=== PATIENT | female | born 1930 | race African-American/Black ===

== ENCOUNTER 2018-10-30 05:55 | Inpatient (IN) | payer MEDICARE ==
[2018-10-30] MEDS ORDERED: ASPIRIN 81 MG TABLET, CHEWABLE PO ONE (06:15)
[2018-10-30 06:29] LABS: ABSOLUTE LYMPHOCYTES (AUTO) 1.6 10^3/uL (0.5-4.7); ABSOLUTE MONOCYTES (AUTO) 0.9 10^3/uL (0.1-1.4); ABSOLUTE NEUT (AUTO) 5.1 10^3/uL (1.7-8.2); BASOPHILS % (AUTO) 0.4 % (0-2); EOSINOPHILS % (AUTO) 0.2 % (0-6); HEMATOCRIT 36.9 % (36.0-47.0); HEMOGLOBIN 12.2 g/dL (12.0-15.5); LYMPHOCYTES % (AUTO) 20.8 % (13-45); MEAN CORPUSCULAR VOLUME 94 fl (80-97); MONOCYTES % (AUTO) 11.4 % (3-13); PLATELET COUNT 222 10^3/uL (150-450); RED BLOOD COUNT 3.92 10^6/uL (3.72-5.28); RED CELL DISTRIBUTION WIDTH 15.9 % (11.5-14.0); SEGMENTED NEUTROPHILS % (AUTO) 67.2 % (42-78); TOTAL CELLS COUNTED % (AUTO) 100 %; WHITE BLOOD COUNT 7.6 10^3/uL (4.0-10.5)
[2018-10-30] MEDS ORDERED: NORMAL SALINE 500 ML IV ONE (06:37)
[2018-10-30 06:58] LABS: ALANINE AMINOTRANSFERASE 45 U/L (9-52); ALBUMIN 4.4 g/dL (3.5-5.0); ALKALINE PHOSPHATASE 91 U/L (38-126); ANION GAP 13 (5-19); ASPARTATE AMINO TRANSFERASE 69 U/L (14-36); BILIRUBIN,DIRECT 0.3 mg/dL (0.0-0.4); BILIRUBIN,TOTAL 0.9 mg/dL (0.2-1.3); BLOOD UREA NITROGEN 25 mg/dL (7-20); CALCIUM 9.7 mg/dL (8.4-10.2); CARBON DIOXIDE 21 mmol/L (22-30); CHLORIDE 113 mmol/L (98-107); CREATINE KINASE 255 U/L (30-135); GLUCOSE 173 mg/dL (75-110); LIPASE 28.2 U/L (23-300); POTASSIUM 3.8 mmol/L (3.6-5.0); SODIUM 146.6 mmol/L (137-145); TOTAL PROTEIN 8.1 g/dL (6.3-8.2)
[2018-10-30 07:09] LABS: CREATINE KINASE MB 6.75 ng/mL (<4.55)
[2018-10-30 07:15] LABS: TROPONIN I 0.437 ng/mL
--- NOTE | 2018-10-30 07:21 | RADIOLOGY REPORT (SQ) ---
EXAM DESCRIPTION: X-ray single view chest. CLINICAL HISTORY: 87 years Female, sob COMPARISON: None. TECHNIQUE: Single portable view of the chest performed on 10/30/2018 at 6:47 AM FINDINGS: The lungs are well expanded. There is patchy bibasilar opacification which may be due to atelectasis and small effusions. There is no evidence of a pneumothorax. There is a left upper lobe granuloma. The cardiac silhouette appears enlarged and may be accentuated by the portable technique. There is mild tortuosity of the thoracic aorta. No acute osseous abnormality is identified. No focal soft tissue abnormalities are seen. Lines and tubes: There are multiple overlying monitoring analyst leads. IMPRESSION: 1. Patchy bibasilar opacification which may be due to a combination of pleural fluid and atelectasis. Underlying pneumonic infiltrates are not excluded. 2. Suspect cardiomegaly.
[2018-10-30] MEDS ORDERED: NORMAL SALINE 1000 ML 1,000 ML IV ONE (07:54)
[2018-10-30] MEDS ORDERED: CEFTRIAXONE 1 GM/D5W RTU 1 GM/50 ML RTUPB IV ONE (08:30)
--- NOTE | 2018-10-30 08:56 | RADIOLOGY REPORT (SQ) ---
EXAM DESCRIPTION: CTA CHEST COMPLETED DATE/TIME: 10/30/2018 8:42 am REASON FOR STUDY: sob elevated trop pna COMPARISON: None. TECHNIQUE: CT scan of the chest performed using helical scanning technique with dynamic intravenous contrast injection. Images reviewed with lung, soft tissue and bone windows. Reconstructed coronal and sagittal MPR images reviewed. Additional 3 dimensional post-processing performed to develop Maximal Intensity Projection images ([place] P). All images stored on PACS. All CT scanners at this facility use dose modulation, iterative reconstruction, and/or weight based d osing when appropriate to reduce radiation dose to as low as reasonably achievable (ALARA). [facility]: Dose Right [facility]: CareDose [facility]: Dose Right [facility]: Teradose 4D [facility]: ORDISSIMO CONTRAST TYPE AND DOSE: contrast/concentration: Isovue 350.00 mg/ml; Total Contrast Delivered: 65.0 ml; Total Saline Delivered: 80.0 ml Contrast bolus optimized for the pulmonary arteries. Not diagnostic for the aorta. RENAL FUNCTION: GFR > 60. RADIATION DOSE: CT Rad equipment meets quality standard of care and radiation dose reduction techniq ues were employed. CTDIvol: 14.3 - 52.9 mGy. DLP: 521 mGy-cm. . LIMITATIONS: None. FINDINGS: LUNGS AND PLEURA: Moderate right, small left pleural effusions with associated atelectasis or consolidation. AORTA AND GREAT VESSELS: Aneurysm of the ascending thoracic aorta, maximum caliber 4.7 x 4.6 cm in th e axial plane. Limited evaluation on this non tailored pulmonary angiogram. HEART: Marked cardiomegaly. PULMONARY ARTERIES: No emboli visualized in the main pulmonary arteries or the segmental branches. HILAR AND MEDIASTINAL STRUCTURES: No identified masses or abnormal nodes. HARDWARE: None in the chest. UPPER ABDOMEN: No significant findings. Limited exam. THYROID AND OTHER SOFT TISSUES: No masses. No adenopathy. BONES: No acute or significant finding. 3D MIPS: Confirm above findings. OTHER: No other significant finding. IMPRESSION: 1. Negative examination for pulmonary embolism. 2. Moderate right, small left pleural effusions with associated atelectasis or consolidation. 3. Cardiomegaly. 4. Aneurysm of the ascending thoracic aorta, maximum caliber 4.7 x 4.6 cm in the axial plane. COMMENT: Quality ID # [id number]: Final reports with documentation of one or more dose reduction techniques (e.g., Automated exposure control, adjustment of the mA and/or kV according to patient size, use of iterative reconstruction technique) TECHNICAL DOCUMENTATION: JOB ID: [id number] [employer]- All Rights Reserved Reading location - IP/workstation name: [email or web address]
--- NOTE | 2018-10-30 09:44 | ER Document Report ---
ED General - General Chief Complaint: Dizziness Stated Complaint: DIZZINESS Time Seen by Provider: 10/30/18 06:14 TRAVEL OUTSIDE OF THE [place] IN LAST 30 DAYS: No - HPI Patient complains to provider of: Dizziness shortness of breath Notes: Patient coming in for evaluation of dizziness patient states dizzy since however has increased and got worse along with shortness of breath. Patient states that she is never seen a doctor is not on any medications otherwise never gets sick denies any fevers chills nausea vomiting diarrhea. Family member states patient has had a slight cough since . Patient does not take any medications nor is she allergic to any medications upon initial triage patient has a bouncing heart rate from the 90s-140s patient was placed in the procedure room up to the monitor showing sinus tachycardia however rate seem to be consistent. Patient denies any pain denies any chest pain abdominal pain patient did not cough any sputum production. Patient is unaware of any changes in her dizziness with movement standing or turning of her head. Patient otherwise is very delightful joking in the room with family members in no obvious distress upon my evaluation. - Related Data Allergies/Adverse Reactions: No Known Allergies Allergy (Verified 09/23/14 09:35) Past Medical History - Social History Smoking Status: Unknown if Ever Smoked Family History: Reviewed & Not Pertinent Patient has suicidal ideation: No Patient has homicidal ideation: No Renal/ Medical History: Denies: Hx Peritoneal Dialysis Past Surgical History: Reports: Hx Section, Hx Hysterectomy Review of Systems - Review of Systems Constitutional: Other - Dizziness EENT: No symptoms reported Cardiovascular: No symptoms reported Respiratory: No symptoms reported Gastrointestinal: No symptoms reported Genitourinary: No symptoms reported Female Genitourinary: No symptoms reported Musculoskeletal: No symptoms reported Skin: No symptoms reported Hematologic/Lymphatic: No symptoms reported Neurological/Psychological: No symptoms reported -: Yes All other systems reviewed and negative Physical Exam - Vital signs Vitals: Temp Pulse Resp BP Pulse Ox 97.6 F 142 H 20 142/92 H 96 10/30/18 06:08 10/30/18 06:08 10/30/18 06:08 10/30/18 06:08 10/30/18 06:08 Interpretation: Normal - General General appearance: Appears well, Alert - HEENT Head: Normocephalic, Atraumatic Eyes: Normal Pupils: PERRL - Respiratory Respiratory status: No respiratory distress Chest status: Nontender Breath sounds: Normal Chest palpation: Normal - Cardiovascular Rhythm: Regular, Tachycardia Heart sounds: Normal auscultation Murmur: No - Abdominal Inspection: Normal Distension: No distension Bowel sounds: Normal Tenderness: Nontender Organomegaly: No organomegaly - Back Back: Normal, Nontender - Extremities General upper extremity: Normal inspection, Nontender, Normal color, Normal ROM, Normal temperature General lower extremity: Normal inspection, Nontender, Normal color, Normal ROM, Normal temperature - Neurological Neuro grossly intact: Yes Cognition: Normal Orientation: AAOx4 Maxwell Coma Scale Eye Opening: Spontaneous Carlo Coma Scale Verbal: Oriented Carlo Coma Scale Motor: Obeys Commands Maxwell Coma Scale Total: 15 Speech: Normal Motor strength normal: LUE, RUE, LLE, RLE Sensory: Normal - Psychological Associated symptoms: Normal affect, Normal mood - Skin Skin Temperature: Warm Skin Moisture: Dry Skin Color: Normal Course - Re-evaluation Re-evalutation: 10/30/18 14:24 Patient's initial evaluation does not show any critical pathology. Patient's EKG shows sinus tachycardia no signs of ST segment elevation. Initial troponin did return positive at 0.4. Patient underwent a CTA showing slight aneurysmal dilation of the ascending aorta 4.7 no signs of dissection pleural effusions along with signs of possible pneumonia. Patient was having a productive cough upon reevaluation was not start treatment with antibiotics. Discussed the patient's case with Dr. Pickard cardiology certified indoor environmentalist states at this time no need to transfer the patient with elevation troponin more likely due to fluid overload or pneumonia. Discussed with the hospitalist Dr. Cook who will admit the patient for further evaluation. - Vital Signs Vital signs: Temp Pulse Resp BP Pulse Ox 97.9 F 98 35 H 138/82 H 100 10/30/18 13:10 10/30/18 06:26 10/30/18 13:02 10/30/18 13:02 10/30/18 13:02 - Laboratory Result Diagrams: 10/30/18 06:25 10/30/18 06:25 Laboratory results interpreted by me: 10/30/18 10/30/18 10/30/18 06:25 06:25 06:25 RDW 15.9 H Sodium 146.6 H Chloride 113 H Carbon Dioxide 21 L BUN 25 H Est GFR (Non-Af Amer) 58 L Glucose 173 H AST 69 H Creatine Kinase 255 H CK-MB (CK-2) 6.75 H NT-Pro-B Natriuret Pep 10/30/18 10/30/18 10/30/18 06:25 10:15 10:15 RDW Sodium Chloride Carbon Dioxide BUN Est GFR (Non-Af Amer) Glucose AST Creatine Kinase 231 H CK-MB (CK-2) 5.69 H NT-Pro-B Natriuret Pep 20081 H Critical Care Note - Critical Care Note Total time excluding time spent on procedures (mins): 35 Comments: Multiple evaluations patient with initial tachycardia and stable vital signs laboratory studies showing elevation in troponin requiring multiple consultations with hospitalist and louver door assembler. Discharge - Discharge Clinical Impression: Elevated troponin, Dizziness Pneumonia Qualifiers: Pneumonia type: due to unspecified organism Laterality: bilateral Lung location: unspecified part of lung Qualified Code(s): J18.9 - Pneumonia, unspecified organism CHF (congestive heart failure) Qualifiers: Heart failure type: unspecified Heart failure chronicity: unspecified Qualified Code(s): I50.9 - Heart failure, unspecified Disposition: ADMITTED INPATIENT Admitting Provider: Hospitalist - [facility] Unit Admitted: [facility]
[2018-10-30] MEDS ORDERED: ONDANSETRON HCL INJ/PF 4 MG/2 ML SDV IV PRN (10:01)
[2018-10-30] MEDS ORDERED: NORMAL SALINE 1000 ML 1,000 ML IV PRN (10:01)
[2018-10-30] MEDS ORDERED: ACETAMINOPHEN 325 MG TABLET PO PRN (10:01)
--- NOTE | 2018-10-30 10:26 | PDOC H&P ---
History of Present Illness Admission Date/PCP: 10/30/2018 Patient complains of: Increasing weakness shortness of breath and sweating for last 5 days History of Present Illness: JOSSY LOW is a 88 year old female with no significant past medical history came to the emergency room with complaints of increasing weakness heart flashes shortness of breath and sweating in association with nausea vomiting's vomiting clear mucus and loose stools for the last 5 days decided to came to the emerg ency room for further evaluation. She is also given the complaints of dizziness on standing up. Any chest pains but complains of wheezing. His any headaches. Has any problems with urination. In the emergency room she has a CT of the chest was done found to have moderate right and small left pleural effusions with adjacent atelectasis/consolidation. Pulmonary embolism was ruled out. Troponin was 0.[address] Pickard mold tooling technician communications attendant was consulted. I went to talk to the patient and the family able to get good information. I was able to reconfirm the information the ER physician got from the patient and the family. Past Surgical History Past Surgical History: Reports: Section, Hysterectomy Social History Smoking Status: Unknown if Ever Smoked - Advance Directive Resuscitation Status: Full Code Family History Family History: Reviewed & Not Pertinent Parental Family History Reviewed: Yes Children Family History Reviewed: Yes Sibling(s) Family History Reviewed.: Yes Medication/Allergy Home Medications: Tramadol HCl [Ultram 50 mg Tablet] 50 mg PO ASDIR PRN #20 tablet 09/23/14 Walker [Folding Walker] 1 each MC ASDIR PRN #1 each 09/23/14 Allergies/Adverse Reactions: No Known Allergies Allergy (Verified 09/23/14 09:35) Review of Systems Constitutional: PRESENT: fatigue, weakness. ABSENT: fever(s), headache(s) Eyes: ABSENT: visual disturbances Ears: ABSENT: hearing changes Cardiovascular: ABSENT: chest pain, dyspnea on exertion, palpitations Respiratory: PRESENT: cough, dyspnea, other - clear sputum Neurological: ABSENT: abnormal gait, abnormal speech, confusion, dizziness, focal weakness, syncope Psychiatric: ABSENT: anxiety, depression, homidical ideation, suicidal ideation Physical Exam Vital Signs: Temp Pulse Resp BP Pulse Ox 97.7 F 98 26 H 131/96 H 80 L 10/30/18 07:27 10/30/18 06:26 10/30/18 07:02 10/30/18 07:02 10/30/18 07:02 Intake & Output 10/29/18 10/30/18 10/31/18 06:59 06:59 06:59 Intake Total 500 Balance 500 Weight 57.4 kg General appearance: PRESENT: no acute distress Head exam: PRESENT: atraumatic Eye exam: PRESENT: PERRLA Mouth exam: PRESENT: moist Neck exam: ABSENT: carotid bruit, JVD, lymphadenopathy, thyromegaly Respiratory exam: PRESENT: decreased breath sounds, wheezes Cardiovascular exam: PRESENT: tachycardia GI/Abdominal exam: PRESENT: normal bowel sounds, soft. ABSENT: distended, guarding, mass, organolmegaly, rebound, tenderness Neurological exam: PRESENT: alert, awake, oriented to person, oriented to place, oriented to time, oriented to situation, CN II-XII grossly intact. ABSENT: motor sensory deficit Psychiatric exam: PRESENT: appropriate affect, normal mood. ABSENT: homicidal ideation, suicidal ideation Results Laboratory Results: 10/30/18 06:25 10/30/18 06:25 10/30/18 10/30/18 06:25 06:25 WBC 7.6 RBC 3.92 Hgb 12.2 Hct 36.9 MCV 94 MCH 31.0 MCHC 33.0 RDW 15.9 H Plt Count 222 Seg Neutrophils % 67.2 Lymphocytes % 20.8 Monocytes % 11.4 Eosinophils % 0.2 Basophils % 0.4 Absolute Neutrophils 5.1 Absolute Lymphocytes 1.6 Absolute Monocytes 0.9 Absolute Eosinophils 0.0 Absolute Basophils 0.0 Sodium 146.6 H Potassium 3.8 Chloride 113 H Carbon Dioxide 21 L Anion Gap 13 BUN 25 H Creatinine 0.92 Est GFR ( Amer) > 60 Est GFR (Non-Af Amer) 58 L Glucose 173 H Calcium 9.7 Magnesium 1.9 Total Bilirubin 0.9 AST 69 H ALT 45 Alkaline Phosphatase 91 Total Protein 8.1 Albumin 4.4 Lipase 28.2 10/30/18 10/30/18 10/30/18 06:25 06:25 06:25 Creatine Kinase 255 H CK-MB (CK-2) 6.75 H Troponin I 0.437 NT-Pro-B Natriuret Pep 15346 H Impressions: Chest X-Ray 10/30/18 06:15 IMPRESSION: 1. Patchy bibasilar opacification which may be due to a combination of pleural fluid and atelectasis. Underlying pneumonic infiltrates are not excluded. 2. Suspect cardiomegaly. Chest/Abdomen CTA 10/30/18 07:54 IMPRESSION: 1. Negative examination for pulmonary embolism. 2. Moderate right, small left pleural effusions with associated atelectasis or consolidation. 3. Cardiomegaly. 4. Aneurysm of the ascending thoracic aorta, maximum caliber 4.7 x 4.6 cm in the axial plane. Assessment & Plan - Diagnosis (1) Pneumonia Qualifiers: Laterality: bilateral Is this a current diagnosis for this admission?: Yes Plan: 10/30/2018-plan today is 2. The patient IMCU. As an inpatient. Sputum cultures ,blood cultures are requested. Patient was placed on oxygen 2 L nasal cannula. Going to put the patient on IV Rocephin 1 g daily Zithromax 500 mg IV daily. To continue CBC and chemistry on daily basis. I am going to request for lactic acid level. I placed her on gentle IV fluids normal saline at 50 cc/h. (2) CHF (congestive heart failure) Is this a current diagnosis for this admission?: Yes Plan: 10/30/2018-CT chest shows bilateral pleural effusions. I am going to request for BNP echocardiogram and cardiology consult was placed. Patient is not in fluid overload. No previous history of congestive heart failure. BNP came back as 34,300. (3) Elevated troponin Is this a current diagnosis for this admission?: Yes Plan: 10/30/2018 initial troponin is 0.4 mold tooling technician was consulted. Start for cardiac enzymes x3, echocardiogram, patient was started on aspirin 325 mg p.o. daily, simvastatin 20 mg p.o. nightly, lipid profile was requested. - Time Time Spent: 50 to 70 Minutes Critical Time spent with patient: 15-24 minutes Medications reviewed and adjusted accordingly: Yes Anticipated discharge: Home
[2018-10-30] MEDS ORDERED: METOPROLOL TARTRATE PF/INJ 5 MG/5 ML SDV IV ONE (10:49)
[2018-10-30] MEDS: FAMOTIDINE INJ/PF 20 MG/2 ML SDV IV SCH ×2 (12:49→21:20)
[2018-10-30] MEDS: AZITHROMYCIN 500 MG in DEXTROSE 5%-WATER 250 ML IV SCH (12:58)
[2018-10-30] MEDS ORDERED: MORPHINE SULFATE 10 MG/ML INJ IV PRN (13:46)
[2018-10-30] MEDS ORDERED: LORAZEPAM INJ 2 MG/1 ML VIAL IV PRN (13:46)
[2018-10-30] MEDS ORDERED: ALBUTEROL SULFATE 0.042% NEB (1.25 MG/3 ML) AMPUL NEB PRN (13:49)
--- NOTE | 2018-10-30 15:05 | EKG REPORT ---
SEVERITY:- ABNORMAL ECG - SINUS TACHYCARDIA VENTRICULAR TRIGEMINY LEFT AXIS DEVIATION LVH WITH SECONDARY REPOLARIZATION ABNORMALITY ANTERIOR INFARCT, AGE INDETERMINATE PROLONGED QT INTERVAL : Confirmed by: Brandon Melendez 30-Oct-2018 15:04:15
--- NOTE | 2018-10-30 15:05 | EKG REPORT ---
SEVERITY:- ABNORMAL ECG - SINUS TACHYCARDIA PAIRED VENTRICULAR PREMATURE COMPLEXES PROBABLE LEFT ATRIAL ABNORMALITY LEFT AXIS DEVIATION LVH WITH SECONDARY REPOLARIZATION ABNORMALITY ANTERIOR INFARCT, AGE INDETERMINATE BORDERLINE PROLONGED QT INTERVAL : Confirmed by: Brandon Melendez 30-Oct-2018 15:04:30
[2018-10-30] MEDS: ENOXAPARIN SODIUM INJ 30 MG/0.3 ML DISP.SYRIN SUBCUT SCH (16:15)
[2018-10-30] MEDS ORDERED: FUROSEMIDE INJ/PF 40 MG/4 ML SDV IV ONE (16:30)
[2018-10-30 16:32] LABS: CREATINE KINASE MB 5.35 ng/mL (<4.55); TROPONIN I 0.578 ng/mL
[2018-10-30 18:46] LABS: APPEARANCE,URINE CLEAR; BILIRUBIN,URINE NEGATIVE (NEGATIVE); COLOR,URINE YELLOW; GLUCOSE, URINE NEGATIVE (NEGATIVE); KETONES,URINE NEGATIVE (NEGATIVE); LEUKOCYTE ESTERASE,URINE NEGATIVE (NEGATIVE); NITRITE,URINE NEGATIVE (NEGATIVE); PROTEIN,URINE NEGATIVE (NEGATIVE); URINE SPECIFIC GRAVITY 1.025; UROBILINOGEN,URINE NEGATIVE mg/dL (<2.0)
[2018-10-30] MEDS: SIMVASTATIN 40 MG TABLET PO SCH ×2 (21:24→23:20)
[2018-10-30 23:16] LABS: CREATINE KINASE MB 3.6 ng/mL (<4.55); TROPONIN I 0.575 ng/mL
[2018-10-31] MEDS ORDERED: METOPROLOL TARTRATE PF/INJ 5 MG/5 ML SDV IV ONE (06:15)
[2018-10-31] MEDS ORDERED: METOPROLOL SUCCINATE 50 MG TAB.SR.24H PO ONE (06:15)
[2018-10-31 06:29] LABS: ABSOLUTE LYMPHOCYTES (AUTO) 1.6 10^3/uL (0.5-4.7); ABSOLUTE MONOCYTES (AUTO) 1.2 10^3/uL (0.1-1.4); ABSOLUTE NEUT (AUTO) 3.5 10^3/uL (1.7-8.2); BASOPHILS % (AUTO) 0.5 % (0-2); EOSINOPHILS % (AUTO) 0.1 % (0-6); HEMATOCRIT 30.9 % (36.0-47.0); HEMOGLOBIN 10.4 g/dL (12.0-15.5); MEAN CORPUSCULAR HEMOGLOBIN 31.4 pg (27.0-33.4); MEAN CORPUSCULAR HGB CONC 33.8 g/dL (32.0-36.0); MEAN CORPUSCULAR VOLUME 93 fl (80-97); MONOCYTES % (AUTO) 18.2 % (3-13); PLATELET COUNT 161 10^3/uL (150-450); RED BLOOD COUNT 3.32 10^6/uL (3.72-5.28); RED CELL DISTRIBUTION WIDTH 15.7 % (11.5-14.0); SEGMENTED NEUTROPHILS % (AUTO) 55.2 % (42-78); TOTAL CELLS COUNTED % (AUTO) 100 %; WHITE BLOOD COUNT 6.3 10^3/uL (4.0-10.5)
[2018-10-31 06:59] LABS: ALANINE AMINOTRANSFERASE 62 U/L (9-52); ALBUMIN 3.2 g/dL (3.5-5.0); ALKALINE PHOSPHATASE 75 U/L (38-126); ANION GAP 8 (5-19); ASPARTATE AMINO TRANSFERASE 86 U/L (14-36); BILIRUBIN,DIRECT 0.2 mg/dL (0.0-0.4); BILIRUBIN,TOTAL 0.5 mg/dL (0.2-1.3); BLOOD UREA NITROGEN 27 mg/dL (7-20); CALCIUM 8.9 mg/dL (8.4-10.2); CARBON DIOXIDE 21 mmol/L (22-30); CHLORIDE 112 mmol/L (98-107); CHOLESTEROL 115.12 mg/dL (0-200); GLUCOSE 114 mg/dL (75-110); SODIUM 141.3 mmol/L (137-145); TOTAL PROTEIN 6.2 g/dL (6.3-8.2); TRIGLYCERIDES 61 mg/dL (<150)
[2018-10-31 07:11] LABS: DIRECT LDL 63 mg/dL (<100)
[2018-10-31] MEDS ORDERED: AZITHROMYCIN INJ 500 MG VIAL IV SCH (10:00)
[2018-10-31] MEDS ORDERED: CYANOCOBALAMIN (VITAMIN B-12) INJ 1000 MCG/1 ML VIAL IM ONE ×2 (10:00→18:30)
[2018-10-31] MEDS ORDERED: CEFTRIAXONE INJ 500 MG VIAL IV SCH (10:00)
[2018-10-31] MEDS ORDERED: ENOXAPARIN SODIUM INJ 40 MG/0.4 ML DISP.SYRIN SUBCUT SCH ×2 (10:00)
--- NOTE | 2018-10-31 10:07 | PDOC PROGRESS REPORT ---
Subjective Progress Note for:: 10/31/18 Subjective:: 10/31/20180122-88-bquw-old female admitted for a slightly elevated troponins and pneumonia. Yesterday evening she has an episode of tachypnea tachycardia complaining of difficulty in breathing become anxious and agitated we did a repeat troponin levels actually the shows downward trend and she was given Ativan 1 mg IV then when she came up to the floor she calmed down and no acute issues after that. Patient is alert and oriented this morning smiling. Was told me that his EKG strip shows bigeminy. plan is to closely monitor cardiac rhythum. Reason For Visit: PNEUMONIA Physical Exam Vital Signs: Temp Pulse Resp BP Pulse Ox 97.9 F 83 22 H 123/57 L 99 10/31/18 03:06 10/31/18 06:40 10/31/18 06:40 10/31/18 06:40 10/31/18 03:06 Intake & Output 10/30/18 10/31/18 11/01/18 06:59 06:59 06:59 Intake Total 1200 Output Total 850 Balance 350 Weight 57.4 kg 62.1 kg General appearance: PRESENT: no acute distress Head exam: PRESENT: atraumatic Eye exam: PRESENT: PERRLA Mouth exam: PRESENT: moist Neck exam: PRESENT: JVD Respiratory exam: PRESENT: crackles, decreased breath sounds Cardiovascular exam: PRESENT: tachycardia GI/Abdominal exam: PRESENT: normal bowel sounds, soft. ABSENT: distended, guarding, mass, organolmegaly, rebound, tenderness Neurological exam: PRESENT: alert, awake, oriented to person, oriented to place, oriented to time, oriented to situation, CN II-XII grossly intact. ABSENT: motor sensory deficit Psychiatric exam: PRESENT: appropriate affect, normal mood. ABSENT: homicidal ideation, suicidal ideation Results Laboratory Results: 10/31/18 05:22 10/31/18 05:22 10/30/18 10/30/18 10/31/18 11:00 18:15 05:22 WBC 6.3 RBC 3.32 L Hgb 10.4 L Hct 30.9 L MCV 93 MCH 31.4 MCHC 33.8 RDW 15.7 H Plt Count 161 Seg Neutrophils % 55.2 Lymphocytes % 26.0 Monocytes % 18.2 H Eosinophils % 0.1 Basophils % 0.5 Absolute Neutrophils 3.5 Absolute Lymphocytes 1.6 Absolute Monocytes 1.2 Absolute Eosinophils 0.0 Absolute Basophils 0.0 Sodium Potassium Chloride Carbon Dioxide Anion Gap BUN Creatinine Est GFR ( Amer) Est GFR (Non-Af Amer) Glucose Lactic Acid 2.6 H Calcium Magnesium Total Bilirubin AST ALT Alkaline Phosphatase Total Protein Albumin Triglycerides Cholesterol LDL Cholesterol Direct VLDL Cholesterol HDL Cholesterol TSH Urine Color YELLOW Urine Appearance CLEAR Urine pH 5.0 Ur Specific [place] 1.025 Urine Protein NEGATIVE Urine Glucose (UA) NEGATIVE Urine Ketones NEGATIVE Urine Blood SMALL H Urine Nitrite NEGATIVE Ur Leukocyte Esterase NEGATIVE Urine WBC (Auto) 1 Urine RBC (Auto) 3 10/31/18 10/31/18 05:22 05:22 WBC RBC Hgb Hct MCV MCH MCHC RDW Plt Count Seg Neutrophils % Lymphocytes % Monocytes % Eosinophils % Basophils % Absolute Neutrophils Absolute Lymphocytes Absolute Monocytes Absolute Eosinophils Absolute Basophils Sodium 141.3 Potassium 4.0 Chloride 112 H Carbon Dioxide 21 L Anion Gap 8 BUN 27 H Creatinine 1.04 Est GFR ( Amer) > 60 Est GFR (Non-Af Amer) 50 L Glucose 114 H Lactic Acid Calcium 8.9 Magnesium 1.9 Total Bilirubin 0.5 AST 86 H ALT 62 H Alkaline Phosphatase 75 Total Protein 6.2 L Albumin 3.2 L Triglycerides 61 Cholesterol 115.12 LDL Cholesterol Direct 63 VLDL Cholesterol 12.0 HDL Cholesterol 43 TSH 0.75 Urine Color Urine Appearance Urine pH Ur Specific [place] Urine Protein Urine Glucose (UA) Urine Ketones Urine Blood Urine Nitrite Ur Leukocyte Esterase Urine WBC (Auto) Urine RBC (Auto) 10/30/18 10/30/18 10/30/18 06:25 06:25 06:25 Creatine Kinase 255 H CK-MB (CK-2) 6.75 H Troponin I 0.437 NT-Pro-B Natriuret Pep 43927 H 10/30/18 10/30/18 10/30/18 10:15 10:15 10:15 Creatine Kinase 231 H CK-MB (CK-2) 5.69 H Troponin I 0.563 NT-Pro-B Natriuret Pep 10/30/18 10/30/18 10/30/18 14:25 15:53 15:53 Creatine Kinase 260 H CK-MB (CK-2) 5.35 H Troponin I 0.640 0.578 NT-Pro-B Natriuret Pep 10/30/18 10/30/18 10/31/18 22:23 22:23 05:22 Creatine Kinase 219 H CK-MB (CK-2) 3.60 Troponin I 0.575 NT-Pro-B Natriuret Pep 76668 H Impressions: Chest X-Ray 10/30/18 06:15 IMPRESSION: 1. Patchy bibasilar opacification which may be due to a combination of pleural fluid and atelectasis. Underlying pneumonic infiltrates are not excluded. 2. Suspect cardiomegaly. Chest/Abdomen CTA 10/30/18 07:54 IMPRESSION: 1. Negative examination for pulmonary embolism. 2. Moderate right, small left pleural effusions with associated atelectasis or consolidation. 3. Cardiomegaly. 4. Aneurysm of the ascending thoracic aorta, maximum caliber 4.7 x 4.6 cm in the axial plane. Assessment & Plan - Diagnosis (1) Pneumonia Qualifiers: Pneumonia type: due to unspecified organism Laterality: bilateral Lung location: unspecified part of lung Qualified Code(s): J18.9 - Pneumonia, unspecified organism Is this a current diagnosis for this admission?: Yes Plan: 10/30/2018-plan today is to admit the pt. The patient IMCU. As an inpatient. Sputum cultures ,blood cultures are requested. Patient was placed on oxygen 2 L nasal cannula. Going to put the patient on IV Rocephin 1 g daily Zithromax 500 mg IV daily. To continue CBC and chemistry on daily basis. I am going to request for lactic acid level. I placed her on gentle IV fluids normal saline at 50 cc/h. 10/31/2018-patient is afebrile her T-max today is 98. Lactic acid level came back is 2.6. I am going to check the lactic acid level today. WBC 6.3. And the cultures are negative so far. Patient is on IV Rocephin 1 g daily, Zithromax 5 mg IV daily. We stopped IV fluids yesterday because of evidence of congestive heart failure fluid overload. Sputum cultures are pending. (2) CHF (congestive heart failure) Qualifiers: Heart failure type: unspecified Heart failure chronicity: unspecified Qualified Code(s): I50.9 - Heart failure, unspecified Is this a current diagnosis for this admission?: Yes Plan: 10/30/2018-CT chest shows bilateral pleural effusions. I am going to request for BNP echocardiogram and cardiology consult was placed. Patient is not in fluid overload. No previous history of congestive heart failure. BNP came back as 34,300. 10/31/2018-admission BNP is 34,500. It was improved to 25,000 today. She got her Lasix 40 mg IV 1 dose yesterday. I am going to start her on Lasix 40 p.o. twice daily. Requested for chest x-ray today. CT chest shows bilateral pleural effusions. (3) Elevated troponin Is this a current diagnosis for this admission?: Yes Plan: 10/30/2018 initial troponin is 0.4 supplemental manager was consulted. Start for cardiac enzymes x3, echocardiogram, patient was started on aspirin 325 mg p.o. daily, simvastatin 20 mg p.o. nightly, lipid profile was requested. 10/31/2018-latest troponin is 0.57. Patient is asymptomatic. EKG shows bigeminy today. To closely monitor the cardiac rhythms. (4) Ventricular bigeminy Is this a current diagnosis for this admission?: Yes Plan: 10/31/2018-EKG rhythm shows shortperiod Of ventricular bigeminy. Patient asymptomatic. Vital signs are stable. - Time Time Spent with patient: 15-24 minutes Medications reviewed and adjusted accordingly: Yes Anticipated discharge: Home
[2018-10-31] MEDS: ASPIRIN 325 MG TABLET PO SCH (11:27)
[2018-10-31] MEDS: ENOXAPARIN SODIUM INJ 30 MG/0.3 ML DISP.SYRIN SUBCUT SCH (11:27)
[2018-10-31] MEDS: FAMOTIDINE INJ/PF 20 MG/2 ML SDV IV SCH ×2 (11:27→21:57)
[2018-10-31] MEDS: CEFTRIAXONE SODIUM 1,000 MG in DEXTROSE 5%-WATER 50 ML IV SCH (11:28)
[2018-10-31] MEDS: AZITHROMYCIN 500 MG in DEXTROSE 5%-WATER 250 ML IV SCH (11:28)
[2018-10-31] MEDS: FUROSEMIDE 40 MG TABLET PO SCH ×2 (11:31→17:35)
--- NOTE | 2018-10-31 12:51 | RADIOLOGY REPORT (SQ) ---
EXAM DESCRIPTION: CHEST 2 VIEWS COMPLETED DATE/TIME: 10/31/2018 12:42 pm REASON FOR STUDY: pneumonia COMPARISON: 10/30/2018 TECHNIQUE: Frontal and lateral radiographic views of the chest acquired. NUMBER OF VIEWS: Two view. LIMITATIONS: None. FINDINGS: LUNGS AND PLEURA: Similar vascular congestion and interstitial edema. Bibasilar volume lo ss/consolidation with small effusions. Doubt significant change. No pneumothorax. MEDIASTINUM AND HILAR STRUCTURES: Stable. HEART AND VASCULAR STRUCTURES: Stable cardiomegaly. BONES: Osteopenic without gross fracture. HARDWARE: None in the chest. OTHER: No other significant finding. IMPRESSION: Stable chest. CHF with diminished basilar aeration as before. TECHNICAL DOCUMENTATION: JOB ID: [id number] [employer]- All Rights Reserved Reading location - IP/workstation name: [email or web address]
--- NOTE | 2018-10-31 12:57 | EKG REPORT ---
SEVERITY:- ABNORMAL ECG - SINUS TACHYCARDIA VENTRICULAR PREMATURE COMPLEX PROBABLE LEFT ATRIAL ABNORMALITY LEFT ANTERIOR FASCICULAR BLOCK LVH WITH SECONDARY REPOLARIZATION ABNORMALITY ANTERIOR INFARCT, AGE INDETERMINATE PROLONGED QT INTERVAL : Confirmed by: Brandon Melendez 31-Oct-2018 12:56:03
--- NOTE | 2018-10-31 13:07 | RADIOLOGY REPORT (SQ) ---
EXAM DESCRIPTION: CTA HEAD COMPLETED DATE/TIME: 10/31/2018 12:39 pm REASON FOR STUDY: Confuson and gait imbalnce COMPARISON: None. TECHNIQUE: Post IV contrast scanning, thin section axial imaging through the brain to evaluate the a rterial structures. Source and MIP images are saved and reviewed on PACS. Advanced 3D imaging as volume-rendering, MIPs, SSD performed? yes All CT scanners at this facility use dose modulation, iterative reconstruction, and/or weight based d osing when appropriate to reduce radiation dose to as low as reasonably achievable (ALARA). [facility]: Dose Right [facility]: CareDose [facility]: Dose Right [facility]: Teradose 4D [facility]: PapayaMobile CONTRAST TYPE AND DOSE: contrast/concentration: Isovue 350.00 mg/ml; Total Contrast Delivered: 70.0 ml; Total Saline Delivered: 75.0 ml RENAL FUNCTION: GFR > 60. LIMITATIONS: None. FINDINGS: [place] OF GE: The anterior, middle, posterior cerebral arteries are all patent. No ev idence of aneurysm or focal stenosis. POSTERIOR CIRCULATION: The distal vertebral arteries are patent as is the basilar artery. No aneurysm . BRAIN: No gross enhancing lesions as visualized. The superior cerebral hemispheres are not included in the field of view. BONES: Intact as visualized. SINUSES: No fluid or mucosal thickening. OTHER: No other significant finding. IMPRESSION: NO CTA EVIDENCE OF STENOSIS OR ANEURYSM OF THE [place] OF GE. TECHNICAL DOCUMENTATION: JOB ID: [id number] Quality ID # [id number]: Final reports with documentation of one or more dose reduction techniques (e.g., Au tomated exposure control, adjustment of the mA and/or kV according to patient size, use of iterative reconstruction technique) 2010 [employer]- All Rights Reserved Reading location - IP/workstation name: [email or web address]
[2018-10-31] MEDS: LISINOPRIL 5 MG TABLET PO SCH ×2 (14:06→21:53)
--- NOTE | 2018-10-31 14:28 | RADIOLOGY REPORT (SQ) ---
EXAM DESCRIPTION: CAROTID DOPPLER COMPLETED DATE/TIME: 10/31/2018 2:20 pm REASON FOR STUDY: TIA / CVA COMPARISON: None. TECHNIQUE: Grayscale ultrasound, Doppler velocity and spectra, and color Doppler images acquired of the extra-cranial carotid and vertebral arteries. Images stored on PACS. LIMITATIONS: Patient motion. FINDINGS: RIGHT CAROTID CCA Velocities: Within normal limits. ICA Velocities Peak systolic 0.36 m/s. End diastolic 0.12 m/s. Proximal ICA/CCA peak systolic ratio 1.5. Spectra normal. No significant plaque. LEFT CAROTID CCA Velocities: Within normal limits. ICA Velocities Peak systolic 0.58 m/s. End diastolic 0.15 m/s. Proximal ICA/CCA peak systolic ratio 0.8. Spectra normal. No significant plaque. VERTEBRAL ARTERIES: Antegrade flow. Normal waveforms. SUBCLAVIAN ARTERIES: Not imaged. OTHER: No other significant finding. IMPRESSION: NO HEMODYNAMICALLY SIGNIFICANT STENOSIS. COMMENT: Quality ID #[id number]: Velocity criteria are extrapolated from the diameter data as defined by t he Society of Radiologists in Ultrasound Consensus Conference. Radiology 2003: 229; 340-346. TECHNICAL DOCUMENTATION: JOB ID: [id number] [employer]- All Rights Reserved Reading location - IP/workstation name: [email or web address]
[2018-10-31] MEDS ORDERED: DOPAMINE HCL/DEXTROSE 5%-WATER 800 MG/250 ML RTUINJ IV ONE (15:42)
[2018-10-31] MEDS ORDERED: FUROSEMIDE INJ/PF 20 MG/2 ML SDV IV ONE (17:22)
[2018-10-31] MEDS ORDERED: DOPAMINE HCL 800 MG/D5W 250 ML IV PRN (18:10)
[2018-10-31] MEDS ORDERED: CYANOCOBALAMIN (VITAMIN B-12) INJ 1000 MCG/1 ML VIAL ONE (18:49)
[2018-10-31] MEDS ORDERED: VERAPAMIL HCL INJ/PF 5 MG/2 ML SDV IV ONE (19:00)
[2018-10-31] MEDS ORDERED: DIGOXIN INJ 0.5 MG/2 ML AMPULE IV ONE (21:06)
--- NOTE | 2018-10-31 21:50 | XCELERA REPORT ---
[address] [address] Transthoracic Echocardiogram Report Name: JOSSY LOW Age: 88 yrs Gender: Female : 1930 Patient Status: Inpatient Patient Location: [address] [place], [place] [address] Study Date: 10/31/2018 01:37 PM Height: 63 in Weight: 136 lb BSA: 1.6 m2 Procedure: A two-dimensional transthoracic echocardiogram with color flow and Doppler was performed. Study Quality: Fair. Reason For Study: CARDIOMYOPATHY History: CARDIOMYOPATHY. Ordering Physician: MYRANDA ARRIETA Performed By: Sebastian Nieto Interpretation Summary The left ventricle is mildly to moderately dilated. There is mild concentric left ventricular hypertrophy. LV EF is 15% Left ventricular systolic function is severely reduced. There is severe global hypokinesis of the left ventricle. There is no thrombus. There is no ventricular septal defect visualized. Flattened septum is consistent with RV pressure/volume overload The right ventricle is moderately dilated. There is mild right ventricular hypertrophy. The right ventricular systolic function is mildly reduced. The right atrium is mild to moderately dilated. The left atrium is moderately dilated. There is mild mitral annular calcification. There is no evidence of mitral valve prolapse. There is no vegetation seen on the mitral valve. There is no mitral valve stenosis. There is a mild amount of mitral regurgitation There is severe aortic stenosis : Probably critical in view of Maximum AV gradient and severlely depressed LVEF.Peak V gradient is 63 mm of HG. There is a mild amount of aortic regurgitation There is no tricuspid stenosis. There is a severe amount of tricuspid regurgitation There is servere pulmonary hypertension by echo RVSP is atleast 72 mm of Hg , with atleast RA mean of 20. There is no pulmonic valvular stenosis. There is a trace amount of pulmonic regurgitation The aortic root is normal size. The inferior vena cava appeared dilated and did not change with respiration (RAP > 20 mmHg) There is no pericardial effusion. MMode/2D Measurements & Calculations RVDd: 3.5 cm LVIDd: 4.5 cm FS: 5.0 % Ao root diam: 2.9 cm IVSd: 1.3 cm LVIDs: 4.3 cm EDV(Teich): 94.4 ml Ao root area: 6.5 cm2 LVPWd: 1.2 cm ESV(Teich): 83.7 ml LA dimension: 3.8 cm EF(Teich): 11.4 % LVOT diam: 2.1 cm LVOT area: 3.5 cm2 Doppler Measurements & Calculations MV E max cristian: MV P1/2t max cristian: Ao V2 max: AI max cristian: 62.2 cm/sec 64.7 cm/sec 129.0 cm/sec 284.4 cm/sec MV A max cristian: MV P1/2t: 42.6 msec Ao max PG: AI max P.6 mmHg 44.4 cm/sec MVA(P1/2t): 5.2 cm2 6.7 mmHg AI dec slope: MV E/A: 1.4 MV dec slope: 239.5 cm/sec2 AI P1/2t: 347.7 msec 445.1 cm/sec2 PA V2 max: PI end-d cristian: TR max cristian: AV P1/2t-pr_phl: 70.6 cm/sec 96.4 cm/sec 358.3 cm/sec 350.9 msec PA max PG: TR max P.0 mmHg 51.4 mmHg MV P1/2t-pr_phl: 42.6 msec Left Ventricle The left ventricle is mildly to moderately dilated. There is mild concentric left ventricular hypertrophy. LV EF is 15%. Left ventricular systolic function is severely reduced. There is severe global hypokinesis of the left ventricle. Flattened septum is consistent with RV pressure/volume overload. There is no thrombus. There is no ventricular septal defect visualized. Right Ventricle The right ventricle is moderately dilated. There is mild right ventricular hypertrophy. The right ventricular systolic function is mildly reduced. Atria The right atrium is mild to moderately dilated. The left atrium is moderately dilated. The interatrial septum is intact with no evidence for an atrial septal defect. There is no Doppler evidence for an interatrial shunt. Mitral Valve There is mild mitral annular calcification. There is no evidence of mitral valve prolapse. There is no vegetation seen on the mitral valve. There is no mitral valve stenosis. There is a mild amount of mitral regurgitation. Aortic Valve There is no aortic valvular vegetation. There is severe aortic stenosis. : Probably critical in view of Maximum AV gradient and severlely depressed LVEF.Peak V gradient is 63 mm of HG. There is a mild amount of aortic regurgitation. Tricuspid Valve There is no tricuspid stenosis. There is a severe amount of tricuspid regurgitation. There is servere pulmonary hypertension by echo. RVSP is atleast 72 mm of Hg , with atleast RA mean of 20. Pulmonic Valve There is no pulmonic valvular stenosis. There is a trace amount of pulmonic regurgitation. Great Vessels The aortic root is normal size. The inferior vena cava appeared dilated and did not change with respiration (RAP > 20 mmHg). Effusions There is no pericardial effusion. : MYRANDA ARRIETA > Myranda Arrieta
--- NOTE | 2018-10-31 23:11 | PDOC CONSULTATION ---
Consultation-Blank Consultation: CARDIOLOGY CONSULTATION by Dr. Myranda Pickard on 10/31/2018. Although I saw the patient briefly on 10/30/2018, the patient had a was had been given Ativan, and was very drowsy, and neither she nor her was at the bedside could give any history. Hence formal consult done on 10/31/2018 at 3 PM. REASON FOR CONSULTATION: Patient with tachycardia and shortness of breath, and elevated troponin I levels. HISTORY of PRESENT ILLNESS: Patient not a very good historian. The is also not a helpful historian. Patient is a 88-year-old Afro-[place]aur[place] female, who claims that she has not had any illnesses in the past, does not take any medications, states that since s has been having some gait imbalance and dizziness and also shortness of breath. She also has been having a little bit of cough, without any sputum production. There is no PND orthopnea. The patient denies any palpitations. Review of this EKG shows that the patient's rhythm is not sinus tachycardia, and is multifocal atrial tachycardia. The patient in the emergency room was found to have pneumonia and the patient is being admitted for further treatment. Although she denies any chest pain or discomfort, the patient's troponin I is elevated. On examination the patient does have a murmur of aortic stenosis, which seems to be significant, and S3 gallop. Hence echo was ordered. Please see findings below. The patient denies any TIA CVA. No prior history of IL or anginal symptoms. No history of syncope. No history of TIA or CVA symptoms. No wheezing. Mild cough which is nonproductive. PAST SURGICAL HISTORY: , and hysterectomy. FAMILY HISTORY: Is negative for coronary artery disease or premature coronary artery disease or sudden . History of hypertension present. ALLERGIES: The patient has no known allergies. SOCIAL HISTORY: The patient does not smoke. There is no history of EtOH abuse. DISPOSITION: The patient is a full code. Her and her and the patient's son her surrogate healthcare decision makers. REVIEW OF SYSTEMS: Constitutional denies any fever chills or rigors. Complains of generalized fatigue and generalized weakness. HEAD: Denies headaches or head injury. EYES: No history of amblyopia diplopia. No history of amaurosis fugax. EARS: No history of hearing loss. No history of tinnitus. NOSE: No history of nosebleeds. No history of hayfever. MOUTH: No history of altered taste sensation. No ulcers or bleeding from the gums. THROAT: No history of odynophagia or dysphagia. No recurrent sore throats. SKIN: No history of pruritus. No history of yellowish discoloration of the skin. No history of psoriasis. No history of skin cancer. NECK: No history of neck pain. No history of goiter. LUNGS: No history of asthma or COPD. No history of wheezing. Recent mild cough. Chest x-ray shows the patient has pneumonia. No history of sleep apnea. No history of pulmonary embolism. No pleuritic chest pain. No hemoptysis. No wheezing. CARDIAC: No history of hypertension no history of coronary artery disease, no history of anginal symptoms. No history of congestive heart failure. The patient's troponin I is elevated. Most likely secondary to patient's cardiomyopathy and also due to multifocal atrial tachycardia. No definite evidence of non-ST elevation IL. No prior history of congestive heart failure, but the patient does have cardiomyopathy and has an S3 gallop. On exam. She also has aortic stenosis, she does not know about this. There is no syncope. There is no palpitations. ENDOCRINE: No history of diabetes mellitus or thyroid disease. No history of polydipsia polyuria. RENAL: No history of chronic kidney disease. No hematuria pyuria or dysuria. METABOLIC: No history of hyperlipidemia. No history of gout. No obesity. MUSCULOSKELETAL: Denies arthritis or collagen vascular disease. GI: No history of fatty food intolerance. The son states that the patient's appetite has decreased over the past few weeks. Unable to say whether the patient has lost weight. She has no history of jaundice. No history of hepatitis. No history of GI bleed. No history of GERD. No history of peptic ulcer disease. No altered bowel movements. TOOL BUILDER: The patient probably at times is a slightly confused. This may be the lingering effects of Ativan. There is no focal deficits no history of TIA CVA. No history of headaches or migraines. PSYCHIATRIC: The patient is slightly confused and hence full exam could not be made, but the patient does not seem to be agitated or anxious. VASCULAR: No history of calf or buttock claudication. No history of DVT. Hematological: Although the patient denies prior history of anemia the patient does have anemia this admission, and a B12 level a low. There is no clotting disorders. There is no blood dyscrasias. There is no bleeding diathesis. PHYSICAL EXAMINATION: The patient is of frail build. Appears to be slightly ill nourished. She is well-groomed. At present in no acute distress Selected Entries 10/31/18 10/31/18 15:07 20:08 Temperature 97.9 F 97.7 F Temperature Oral Axillary Source Pulse Rate 81 84 Respiratory 24 H 20 Rate Blood Pressure 86/65 L 96/60 L Blood Pressure 72 72 Mean BP Location Right Arm Right Arm BP Position Supine Supine O2 Sat by Pulse 100 98 Oximetry Oxygen Delivery Nasal Cannula Room Air Method HEAD: Is atraumatic normocephalic EYES: Pupils are equal round regular reactive to light accommodation. There is mild conjunctival pallor. There is no scleral icterus. EARS:: External artery canals are clear. Tympanic memories are intact. NOSE: There is no deviated nasal septum. There is no inflammation of the nasal mucous membrane. MOUTH: Mucous membranes of mouth are moist. Tongue is moist. There is no ulcers. There is no bleeding from the gums. THROAT: There is no redness of the oropharynx. There is no exudates. SKIN: There is no skin lesions or skin rashes. There is no petechia or ecchymosis. NECK: Is supple. There is mild JVD present. Carotids are equal there is no bruits but there is bilateral transmitted sounds over the carotids from the aortic area due to aortic stenosis. There is carotid delay present. There is no lymphadenopathy. THERE IS NO GOITER. Lungs: There is diminished/absent breath sounds in both bases. About this there is dry crackles in both bases. There is at present no definite rales of CHF. HEART: S1-S2 is heard S1 is of normal intensity. There is no S there is a faint S3 gallop present. There is no S4 gallop. There is systolic murmur of aortic stenosis present 82 is not heard. There is no definite thrill. There is no murmur of aortic regurgitation. There is murmur of tricuspid regurgitation present. There is no mitral regurgitation murmur of any significance. There is no rub. ABDOMEN: Is soft. There is no hepatosplenomegaly. Bowel sounds are well heard. There is no rebound guarding or rigidity. Extremities: Femorals are diminished. There is no femoral bruits. Leg pulses are diminished. There is no pedal edema. There is no DVT or cellulitis. There is no calf tenderness. There is no signs of clubbing TOOL BUILDER: The patient is drowsy but with no focal deficits. PSYCHIATRIC: The patient does not appear to be agitated. She is not anxious. 10/31/18 10/31/18 10/31/18 05:22 05:22 05:22 WBC 6.3 RBC 3.32 L Hgb 10.4 L Hct 30.9 L MCV 93 MCH 31.4 MCHC 33.8 RDW 15.7 H Plt Count 161 Seg Neutrophils % 55.2 Lymphocytes % 26.0 Monocytes % 18.2 H Eosinophils % 0.1 Basophils % 0.5 Absolute Neutrophils 3.5 Absolute Lymphocytes 1.6 Absolute Monocytes 1.2 Absolute Eosinophils 0.0 Absolute Basophils 0.0 Sodium 141.3 Potassium 4.0 Chloride 112 H Carbon Dioxide 21 L Anion Gap 8 BUN 27 H Creatinine 1.04 Est GFR ( Amer) > 60 Glucose 114 H Hemoglobin A1c % 5.6 Lactic Acid Calcium 8.9 Magnesium 1.9 Total Bilirubin 0.5 Direct Bilirubin 0.2 Neonat Total Bilirubin Not Reportable Neonat Direct Bilirubin Not Reportable Neonat Indirect Bili Not Reportable AST 86 H ALT 62 H Alkaline Phosphatase 75 NT-Pro-B Natriuret Pep Total Protein 6.2 L Albumin 3.2 L Triglycerides 61 Cholesterol 115.12 LDL Cholesterol Direct 63 VLDL Cholesterol 12.0 HDL Cholesterol 43 Vitamin B12 TSH 10/31/18 10/31/18 10/31/18 05:22 05:22 05:22 WBC RBC Hgb Hct MCV MCH MCHC RDW Plt Count Seg Neutrophils % Lymphocytes % Monocytes % Eosinophils % Basophils % Absolute Neutrophils Absolute Lymphocytes Absolute Monocytes Absolute Eosinophils Absolute Basophils Sodium Potassium Chloride Carbon Dioxide Anion Gap BUN Creatinine Est GFR ( Amer) Glucose Hemoglobin A1c % Lactic Acid Calcium Magnesium Total Bilirubin Direct Bilirubin Neonat Total Bilirubin Neonat Direct Bilirubin Neonat Indirect Bili AST ALT Alkaline Phosphatase NT-Pro-B Natriuret Pep 83754 H Total Protein Albumin Triglycerides Cholesterol LDL Cholesterol Direct VLDL Cholesterol HDL Cholesterol Vitamin B12 < 159.0 L TSH 0.75 10/31/18 10:43 WBC RBC Hgb Hct MCV MCH MCHC RDW Plt Count Seg Neutrophils % Lymphocytes % Monocytes % Eosinophils % Basophils % Absolute Neutrophils Absolute Lymphocytes Absolute Monocytes Absolute Eosinophils Absolute Basophils Sodium Potassium Chloride Carbon Dioxide Anion Gap BUN Creatinine Est GFR ( Amer) Glucose Hemoglobin A1c % Lactic Acid 4.0 H Calcium Magnesium Total Bilirubin Direct Bilirubin Neonat Total Bilirubin Neonat Direct Bilirubin Neonat Indirect Bili AST ALT Alkaline Phosphatase NT-Pro-B Natriuret Pep Total Protein Albumin Triglycerides Cholesterol LDL Cholesterol Direct VLDL Cholesterol HDL Cholesterol Vitamin B12 TSH THE patient EKG is serially showed that the patient has multifocal atrial tachycardia. Chest x-ray shows cardiomegaly. Bibasilar opacities suggestive of pneumonic process. The patient's CTA of the chest shows no pulmonary emboli. There is moderate bilateral pleural effusions with underlying consolidation/pneumonia. The patient echocardiogram shows that the left ventricle is mild to moderately dilated, there is mild concentric LVH. There is severe diffuse hypokinesis with LV ejection fraction of 15%. There is severe aortic stenosis, probably critical aortic stenosis. There is mild aortic regurgitation. There is severe tricuspid regurgitation and severe pulmonary hypertension. There is mild mitral regurgitation present. There is no pericardial effusion. Note after I saw the patient the patient had a hypotensive episode where the blood pressure went to 86 systolic, the patient was started on dobutamine at 5mcg/kg/min, which brought the blood pressure up. There was transient increase of the heart rate of 140s, [M FAT], which resolved with 2.5 mg of verapamil given IV. IMPRESSION/recommendation : 1. Elevated troponin I: Most likely secondary to combination of severe c ardiomyopathy, aortic stenosis, pneumonia, and multifocal atrial tachycardia. No definite evidence of non-ST elevation IL. But in view of the patient's age one is obligated to further assess for any underlying/significant coronary artery disease. 2. Aortic stenosis: Although the echo shows severe aortic stenosis, in view of the LV dysfunction the patient probably has critical aortic stenosis. Once the pneumonia is cured would recommend that the patient be seen in a tertiary care center for possible percutaneous aortic valve replacement. This has been discussed with the son. 3. Hypotension: Most likely secondary to cardiomyopathy and aortic stenosis and the patient's M FAT. Continue dopamine cautiously. 4.cardiomyopathy with severely reduced LV ejection fraction. Would continue the patient on a beta-sammi curve, and also start the patient on small dose of JOSE inhibitor. Need to be cautious about this in view of the patient's aortic stenosis. 5. Severe pulmonary hypertension: Most likely secondary to patient's cardiomyopathy and aortic stenosis, which I believe is long-standing in spite of the patient being asymptomatic. 6. Anemia with B12 deficiency: Start the patient on replacement with B12 injections. We will give the patient thousand micrograms intramuscularly daily for 4 days, and then once a month. Discussed the patient's aortic stenosis, LV dysfunction, elevated troponin I, and the aortic stenosis with the patient's son. At present the patient is a full code and they want us to continue current treatment. There agreeable for the patient to be seen in a tertiary care center for possible T AVR. Medications reviewed. Medications adjusted. Discussed with attending physician on the case, and management plan Shashank after consultation with other caregiving providers on the case. Note 60 minutes spent on this patient with more than 50% of time spent on direct patient care. Note medical decision making is of high complexity. I had briefly spoken to the cardiology attending in [facility], and he is agreeable for the patient to be transferred there. We will reassess the patient to see, and evaluate the urgency of transfer to the tertiary care center.
[2018-10-31] MEDS ORDERED: DILTIAZEM HCL/D5W 125 MG/125 ML RTUINJ IV PRN (23:24)
[2018-10-31] MEDS ORDERED: DILTIAZEM HCL/D5W 125 MG/125 ML RTUINJ IV ONE (23:37)
--- NOTE | 2018-11-01 08:53 | EKG REPORT ---
SEVERITY:- ABNORMAL ECG - SINUS RHYTHM MULTIPLE VENTRICULAR PREMATURE COMPLEXES LEFT AXIS DEVIATION LVH WITH SECONDARY REPOLARIZATION ABNORMALITY : Confirmed by: Brandon Melendez 01-Nov-2018 08:52:16
--- NOTE | 2018-11-01 08:53 | EKG REPORT ---
SEVERITY:- ABNORMAL ECG - ATRIAL FIBRILLATION, V-RATE 80-114 VENTRICULAR TRIGEMINY LAD, CONSIDER LEFT ANTERIOR FASCICULAR BLOCK LVH WITH SECONDARY REPOLARIZATION ABNORMALITY ANTERIOR Q WAVES, POSSIBLY DUE TO LVH BORDERLINE PROLONGED QT INTERVAL : Confirmed by: Brandon Melendez 01-Nov-2018 08:53:06
[2018-11-01] MEDS ORDERED: CYANOCOBALAMIN (VITAMIN B-12) INJ 1000 MCG/1 ML VIAL IM SCH (10:00)
[2018-11-01] MEDS ORDERED: METOPROLOL SUCCINATE 50 MG TAB.SR.24H PO SCH (10:00)
[2018-11-01] MEDS ORDERED: FOLIC ACID 1 MG TABLET PO SCH (10:00)
--- NOTE | 2018-11-01 10:25 | PDOC PROGRESS REPORT ---
Subjective Progress Note for:: 11/01/18 Subjective:: 10/31[birth year][id number]-yrmy-old female admitted for a slightly elevated troponins and pneumonia. Yesterday evening she has an episode of tachypnea tachycardia complaining of difficulty in breathing become anxious and agitated we did a repeat troponin levels actually the shows downward trend and she was given Ativan 1 mg IV then when she came up to the floor she calmed down and no acute issues after that. Patient is alert and oriented this morning smiling. Was told me that his EKG strip shows bigeminy. plan is to closely monitor cardiac rhythum. 11/01/2018-patient is expressing desire to go home. and daughter at bedside and explained to the patient and the family that she may need to be transferred to [place] once the pneumonia is cleared for possible aortic valve replacement. Patient understood and agreed to stay in the hospital. Family is also requesting for transfer once the patient is cleared of pneumonia. Patient denies any chest pains or shortness of breath. Reason For Visit: PNEUMONIA Physical Exam Vital Signs: Temp Pulse Resp BP Pulse Ox 98.6 F 86 20 122/64 97 11/01/18 04:02 11/01/18 06:15 11/01/18 04:02 11/01/18 06:15 11/01/18 04:02 Intake & Output 10/31/18 11/01/18 11/02/18 06:59 06:59 06:59 Intake Total 1200 580 Output Total 850 2350 Balance 350 -1770 Weight 62.1 kg 60.3 kg General appearance: PRESENT: mild distress Head exam: PRESENT: atraumatic Eye exam: PRESENT: PERRLA Mouth exam: PRESENT: moist Neck exam: PRESENT: JVD Respiratory exam: PRESENT: other - Decreased bilateral entry and decreased breath sounds bilaterally secondary to bilateral pleural effusions. Cardiovascular exam: PRESENT: other - Patient has multifocal atrial tachycardia and severe systolic murmur secondary to aortic stenosis. GI/Abdominal exam: PRESENT: normal bowel sounds, soft. ABSENT: distended, gua rding, mass, organolmegaly, rebound, tenderness Neurological exam: PRESENT: alert, awake, oriented to time, oriented to situation Psychiatric exam: PRESENT: appropriate affect, normal mood. ABSENT: homicidal ideation, suicidal ideation Results Laboratory Results: 10/31/18 05:22 10/31/18 10/31/18 05:22 10:43 Lactic Acid 4.0 H Vitamin B12 < 159.0 L 10/30/18 10/30/18 10/30/18 06:25 06:25 06:25 Creatine Kinase 255 H CK-MB (CK-2) 6.75 H Troponin I 0.437 NT-Pro-B Natriuret Pep 77507 H 10/30/18 10/30/18 10/30/18 10:15 10:15 10:15 Creatine Kinase 231 H CK-MB (CK-2) 5.69 H Troponin I 0.563 NT-Pro-B Natriuret Pep 10/30/18 10/30/18 10/30/18 14:25 15:53 15:53 Creatine Kinase 260 H CK-MB (CK-2) 5.35 H Troponin I 0.640 0.578 NT-Pro-B Natriuret Pep 10/30/18 10/30/18 10/31/18 22:23 22:23 05:22 Creatine Kinase 219 H CK-MB (CK-2) 3.60 Troponin I 0.575 NT-Pro-B Natriuret Pep 75456 H 11/01/18 06:00 Creatine Kinase CK-MB (CK-2) Troponin I NT-Pro-B Natriuret Pep 95106 H Impressions: Chest/Abdomen CTA 10/30/18 07:54 IMPRESSION: 1. Negative examination for pulmonary embolism. 2. Moderate right, small left pleural effusions with associated atelectasis or consolidation. 3. Cardiomegaly. 4. Aneurysm of the ascending thoracic aorta, maximum caliber 4.7 x 4.6 cm in the axial plane. Carotid Doppler Study 10/31/18 00:00 IMPRESSION: NO HEMODYNAMICALLY SIGNIFICANT STENOSIS. Chest X-Ray 10/31/18 00:00 IMPRESSION: Stable chest. CHF with diminished basilar aeration as before. Head CTA 10/31/18 00:00 IMPRESSION: NO CTA EVIDENCE OF STENOSIS OR ANEURYSM OF THE [place]. Assessment & Plan - Diagnosis (1) Pneumonia Qualifiers: Pneumonia type: due to unspecified organism Laterality: bilateral Lung location: unspecified part of lung Qualified Code(s): J18.9 - Pneumonia, u nspecified organism Is this a current diagnosis for this admission?: Yes Plan: 10/30/2018-plan today is to admit the pt. The patient IM. As an inpatient. Sputum cultures ,blood cultures are requested. Patient was placed on oxygen 2 L nasal cannula. Going to put the patient on IV Rocephin 1 g daily Zithromax 500 mg IV daily. To continue CBC and chemistry on daily basis. I am going to request for lactic acid level. I placed her on gentle IV fluids normal saline at 50 cc/h. 10/31/2018-patient is afebrile her T-max today is 98. Lactic acid level came back is 2.6. I am going to check the lactic acid level today. WBC 6.3. And the cultures are negative so far. Patient is on IV Rocephin 1 g daily, Zithromax 500 mg IV daily. We stopped IV fluids yesterday because of evidence of congestive heart failure fluid overload. Sputum cultures are pending. 11/01/2018-T-max today is 98.6. Patient is appropriate afebrile. Sputum cultures are pending. Blood cultures are negative so far. Patient is on IV Rocephin 1 g daily and Zithromax 500 mg IV daily. WBC count is 6.3. Plan is to continue the present management. (2) CHF (congestive heart failure) Qualifiers: Heart failure type: unspecified Heart failure chronicity: unspecified Qualified Code(s): I50.9 - Heart failure, unspecified Is this a current diagnosis for this admission?: Yes Plan: 10/30/2018-CT chest shows bilateral pleural effusions. I am going to request for BNP echocardiogram and cardiology consult was placed. Patient is not in fluid overload. No previous history of congestive heart failure. BNP came back as 34,300. 10/31/2018-admission BNP is 34,500. It was improved to 25,000 today. She got her Lasix 40 mg IV 1 dose yesterday. I am going to start her on Lasix 40 p.o. twice daily. Requested for chest x-ray today. CT chest shows bilateral pleural effusions. 11/01/2018 patient has cardiomyopathy ,severely reduced left ventricular ejection fraction less than 15%. Patient BNP is 23,000+. Patient is on Lasix 40 mg p.o. twice daily. Latest blood pressure is 122/68. Going to put her on fluid restriction to 1.5 L/day. (3) Elevated troponin Is this a current diagnosis for this admission?: Yes Plan: 10/30/2018 initial troponin is 0.4 enterprise resource analyst was consulted. Start for cardiac enzymes x3, echocardiogram, patient was started on aspirin 325 mg p.o. daily, simvastatin 20 mg p.o. nightly, lipid profile was requested. 10/31/2018-latest troponin is 0.57. Patient is asymptomatic. EKG shows bigeminy today. To closely monitor the cardiac rhythms. 11/01/2018-patient has elevated troponin I initially. It is probably secondary to cardiomyopathy, severe aortic stenosis, multifocal atrial tachycardia. Pat ient denies any chest pains. 11/01/2018 by reviewing the cardiac rhythm patient most likely have multifocal atrial tachycardia. (4) Ventricular bigeminy Is this a current diagnosis for this admission?: Yes (5) Severe aortic stenosis Is this a current diagnosis for this admission?: Yes Plan: 11/01/2018 echocardiogram shows patient has severe aortic stenosis, the plan is to transfer her to [place] for possible valve replacement once her pneumonia is treated. Family understood and agreed for the transfer. Patient was currently on Cardizem drip at the rate of 2.5 mg/h. (6) Cardiomyopathy Is this a current diagnosis for this admission?: Yes Plan: 11/01/2018 echocardiogram shows cardiomyopathy with ejection fraction of less than 15%. (7) Vitamin B 12 deficiency Is this a current diagnosis for this admission?: Yes Plan: 11/01/2018-the vitamin B12 came back less than 160. She is getting vitamin B12 injections thousand micrograms IM daily. Is also getting folic acid. She is complaining of gait abnormalities 1 week prior to the hospitalization. - Time Time Spent with patient: 15-24 minutes Medications reviewed and adjusted accordingly: Yes Anticipated discharge: Home, [facility]
[2018-11-01 10:30] LABS: ALANINE AMINOTRANSFERASE 170 U/L (9-52); ALBUMIN 3.2 g/dL (3.5-5.0); ALKALINE PHOSPHATASE 116 U/L (38-126); ANION GAP 9 (5-19); ASPARTATE AMINO TRANSFERASE 240 U/L (14-36); BILIRUBIN,DIRECT 0.3 mg/dL (0.0-0.4); BILIRUBIN,TOTAL 0.4 mg/dL (0.2-1.3); BLOOD UREA NITROGEN 28 mg/dL (7-20); CALCIUM 8.8 mg/dL (8.4-10.2); CARBON DIOXIDE 23 mmol/L (22-30); CHLORIDE 107 mmol/L (98-107); GLUCOSE 94 mg/dL (75-110); POTASSIUM 3.6 mmol/L (3.6-5.0); SODIUM 139.1 mmol/L (137-145); TOTAL PROTEIN 6.3 g/dL (6.3-8.2)
--- NOTE | 2018-11-01 10:36 | RADIOLOGY REPORT (SQ) ---
EXAM DESCRIPTION: CHEST SINGLE VIEW COMPLETED DATE/TIME: 11/01/2018 10:28 am REASON FOR STUDY: Pneumonia COMPARISON: 10/31/2018. FINDINGS: AP portable upright single-view chest timed approximately 1011 hours. Improved. Basilar aeration improved. Less vascular congestion. Cardiomegaly. No pneumothorax. Osteopenic. TECHNICAL DOCUMENTATION: JOB ID: [id number] Reading location - IP/workstation name: [email or web address]
[2018-11-01] MEDS: FUROSEMIDE 40 MG TABLET PO SCH ×2 (11:11→17:44)
[2018-11-01] MEDS: ASPIRIN 325 MG TABLET PO SCH (11:12)
[2018-11-01] MEDS: LISINOPRIL 5 MG TABLET PO SCH (11:12)
[2018-11-01] MEDS: AZITHROMYCIN 500 MG in DEXTROSE 5%-WATER 250 ML IV SCH (11:13)
[2018-11-01] MEDS: FAMOTIDINE INJ/PF 20 MG/2 ML SDV IV SCH (11:13)
[2018-11-01] MEDS: CEFTRIAXONE SODIUM 1,000 MG in DEXTROSE 5%-WATER 50 ML IV SCH (11:13)
[2018-11-01] MEDS: ENOXAPARIN SODIUM INJ 30 MG/0.3 ML DISP.SYRIN SUBCUT SCH (11:13)
--- NOTE | 2018-11-01 14:11 | PDOC TRANSFER SUMMARY ---
General Admission Date/PCP: 10/30/18 10:57 Resuscitation Status: Full Code - Transfer Diagnosis (1) Pneumonia Is this a current diagnosis for this admission?: Yes (2) CHF (congestive heart failure) Is this a current diagnosis for this admission?: Yes (3) Elevated troponin Is this a current diagnosis for this admission?: Yes (4) Ventricular bigeminy Is this a current diagnosis for this admission?: Yes (5) Severe aortic stenosis Is this a current diagnosis for this admission?: Yes (6) Cardiomyopathy Is this a current diagnosis for this admission?: Yes (7) Vitamin B 12 deficiency Is this a current diagnosis for this admission?: Yes - Transfer Medications Home Medications: No Home Medications 10/30/18 Transfer Medications: Current Medications Acetaminophen (Tylenol 325 Mg Tablet) 650 mg PO Q4HP PRN PRN Reason: FEVER >101 Stop: 11/29/18 10:00 Albuterol (Ventolin 0.042% Neb 1.25 Mg/3 Ml Ampul) 1.25 mg NEB RTQ4HP PRN PRN Reason: SHORTNESS OF BREATH Stop: 11/29/18 13:48 Aspirin (Aspirin 325 Mg Tablet) 325 mg PO DAILY [facility] Stop: 11/30/18 09:59 Last Admin: 11/01/18 11:12 Dose: 325 mg Documented by: Cyanocobalamin (Vitamin B-12 Inj 1000 Mcg/1 Ml Vial) 1,000 mcg IM DAILY [facility] Stop: 11/03/18 10:01 Last Admin: 11/01/18 11:13 Dose: 1,000 mcg Documented by: Enoxaparin Sodium (Lovenox Inj 30 Mg/0.3 Ml Disp.Syrin) 30 mg SUBCUT DAILY [facility] Stop: 11/29/18 13:59 Last Admin: 11/01/18 11:13 Dose: 30 mg Documented by: Famotidine (Pepcid Inj/Pf 20 Mg/2 Ml Sdv) 20 mg IV Q12 [facility] Stop: 11/29/18 11:29 Last Admin: 11/01/18 11:13 Dose: 20 mg Documented by: Folic Acid (Folvite 1 Mg Tablet) 1 mg PO DAILY [facility] Stop: 12/01/18 09:59 Last Admin: 11/01/18 11:12 Dose: 1 mg Documented by: Furosemide (Lasix 40 Mg Tablet) 40 mg PO BID [facility] Stop: 11/30/18 10:59 Last Admin: 11/01/18 11:11 Dose: 40 mg Documented by: Ceftriaxone Sodium 1,000 mg/ (Dextrose) 50 mls @ 30 mls/hr IV DAILY [facility] Stop: 11/07/18 09:59 Last Infusion: 11/01/18 12:54 Dose: Infused Documented by: Azithromycin 500 mg/ Dextrose 250 mls @ 250 mls/hr IV DAILY [facility] Stop: 11/06/18 12:59 Last Infusion: 11/01/18 12:13 Dose: Infused Documented by: Diltiazem HCl (Cardizem Rtu Inj 125 Mg-D5w 125 Ml Premix) 125 mg in 125 mls @ 0 mls/hr IV CONTINUOUS PRN; Protocol PRN Reason: THIS MED IS NOT "PRN" Stop: 11/30/18 23:23 Last Titration: 11/01/18 11:30 Dose: 5 mls/hr, 5 mls/hr Documented by: Influenza Virus Vaccine Quadrival (Fluarix Adlt Quad Vac 0.5 Ml Syr) 0.5 ml IM .DISCHARGE PRN PRN Reason: THIS MED IS NOT "PRN" Stop: 11/29/18 15:30 Lisinopril (Prinivil 5 Mg Tablet) 2.5 mg PO Q12 [facility] Stop: 11/30/18 12:59 Last Admin: 11/01/18 11:12 Dose: 2.5 mg Documented by: Lorazepam (Ativan Inj 2 Mg/1 Ml Vial) 1 mg IV Q2HP PRN PRN Reason: ANXIETY/AGITATION Stop: 11/06/18 13:45 Last Admin: 10/30/18 14:03 Dose: 1 mg Documented by: Metoprolol Succinate (Toprol Xl 25 Mg Tab.Sr) 25 mg PO Q12 [facility] Stop: 12/01/18 21:59 Ondansetron HCl (Zofran Inj/Pf 4 Mg/2 Ml Sdv) 4 mg IV Q8HP PRN PRN Reason: FOR NAUSEA/VOMITING Stop: 11/29/18 10:00 Last Admin: 10/30/18 13:59 Dose: 4 mg Documented by: - Allergies Allergies/Adverse Reactions: No Known Allergies Allergy (Verified 09/23/14 09:35) Hospital Course Hospital Course: 10/30/2018-hours 2 PM. Patient's nurse Zulema called me to notify that patient is anxious and nervous tachypneic complaining of quadrant to breathe and blood pressure is 99/60 and I went to evaluate the patient patient will looks anxious and nervous denies any chest pain complaining of shortness of breath. And we put her in the proper position on examination chest bilateral entry was decreased decreased, decreased bilateral entry at the bases probably secondary to bilateral pleural effusions no wheezing no rhonchi heard. And the heart rate 100s. She is tachycardic tachypneic as mentioned above after I spoke to her, patient calm down and I requested the nurse to give her Ativan 1 mg IV 1 dose morphine 1 mg IV every 4 as needed for chest pains and order for stat cardiac enzymes again. For nebulizer treatments every 4 as needed. Continue to closely monitor the patient in regular basis. As I mentioned in the H&P CTA is negative for pulmonary embolism. BNP came back is 34,500. Initial troponin is 0.4 second troponin is 0.563. ck MB slightly elevated. Cardiology consult was requested Dr. Pickard is aware of the patient. 11/01/2018-the echocardiogram report yesterday came back as severe cardiomyopathy associated with severe aortic stenosis. Patient also became hypotensive yesterday and she was started on dopamine drip she was also started on a Cardizem drip this morning dopamine drip was started because she became hypotensive yesterday. Blood pressures are relatively improved latest blood pressure is 122/64 and dopamine was discontinued she was still on Cardizem drip 2.5 milligrams per hour. Patient was also getting treated for pneumonia she came in with left-sided pneumonia she was on IV Rocephin and is max of her cultures are negative. Lactic acid was elevated to 4.0. Cardiology consult was done Dr. Pickard follow the patient and he reviewed the echocardiogram and started on dopamine drip and Cardizem drip because of the severe aortic stenosis associated with cardiomyopathy he thinks patient may need valve replacement p rior to her probable cardiac cath so the transverse process was initiated and he discussed the case with Dr. Sawyer next 20 yesterday and he also spoke to the cardiology team at [facility] in [place] today they agreed to take the patient we discussed the care with the family members and they want everything to be done for her that means she is a full code they agreed for the transfer to [place] when the bed is available. The echocardiogram shows EF of less than 15% she was started on Lasix 40 mg p.o. twice daily yesterday and she was also given Lasix 40 mg IV 1 dose yesterday evening. Patient was never seen a primary care physician for a long time she is not any home medications the family the patient does not know history of any congestive heart failure. in the ER patient's initial troponins are slightly elevated troponin is 0.56 on this troponin elevations may be secondary to cardiomyopathy, severe aortic stenosis, underlying pneumonia, and we noticed multifocal atrial tachycardia on the monitor. Physical Exam Vital Signs: Temp Pulse Resp BP Pulse Ox 100.6 F H 97 17 125/82 95 11/01/18 11:20 11/01/18 12:02 11/01/18 12:02 11/01/18 11:20 11/01/18 12:02 Intake & Output 10/31/18 11/01/18 11/02/18 06:59 06:59 06:59 Intake Total 1200 580 626 Output Total 850 2350 400 Balance 350 -1770 226 Weight 62.1 kg 60.3 kg General appearance: PRESENT: mild distress Eye exam: PRESENT: PERRLA Mouth exam: PRESENT: moist Neck exam: PRESENT: JVD Respiratory exam: PRESENT: crackles, decreased breath sounds Cardiovascular exam: PRESENT: systolic murmur, tachycardia GI/Abdominal exam: PRESENT: normal bowel sounds, soft. ABSENT: distended, guarding, mass, organolmegaly, rebound, tenderness Neurological exam: PRESENT: alert, awake, oriented to person, oriented to place, oriented to time, oriented to situation, CN II-XII grossly intact. ABSENT: motor sensory deficit Psychiatric exam: PRESENT: appropriate affect, normal mood. ABSENT: homicidal ideation, suicidal ideation Results Laboratory Results: 10/31/18 05:22 11/01/18 06:00 11/01/18 06:00 Sodium 139.1 Potassium 3.6 Chloride 107 Carbon Dioxide 23 Anion Gap 9 BUN 28 H Creatinine 0.94 Est GFR ( Amer) > 60 Est GFR (Non-Af Amer) 56 L Glucose 94 Calcium 8.8 Total Bilirubin 0.4 AST 240 H ALT 170 H Alkaline Phosphatase 116 Total Protein 6.3 Albumin 3.2 L 10/30/18 10/30/18 10/30/18 06:25 06:25 06:25 Creatine Kinase 255 H CK-MB (CK-2) 6.75 H Troponin I 0.437 NT-Pro-B Natriuret Pep [id number] H 10/30/18 10/30/18 10/30/18 10:15 10:15 10:15 Creatine Kinase 231 H CK-MB (CK-2) 5.69 H Troponin I 0.563 NT-Pro-B Natriuret Pep 10/30/18 10/30/18 10/30/18 14:25 15:53 15:53 Creatine Kinase 260 H CK-MB (CK-2) 5.35 H Troponin I 0.640 0.578 NT-Pro-B Natriuret Pep 10/30/18 10/30/18 10/31/18 22:23 22:23 05:22 Creatine Kinase 219 H CK-MB (CK-2) 3.60 Troponin I 0.575 NT-Pro-B Natriuret Pep 61184 H 11/01/18 06:00 Creatine Kinase CK-MB (CK-2) Troponin I NT-Pro-B Natriuret Pep 77129 H Impressions: Chest/Abdomen CTA 10/30/18 07:54 IMPRESSION: 1. Negative examination for pulmonary embolism. 2. Moderate right, small left pleural effusions with associated atelectasis or consolidation. 3. Cardiomegaly. 4. Aneurysm of the ascending thoracic aorta, maximum caliber 4.7 x 4.6 cm in the axial plane. Carotid Doppler Study 10/31/18 00:00 IMPRESSION: NO HEMODYNAMICALLY SIGNIFICANT STENOSIS. Head CTA 10/31/18 00:00 IMPRESSION: NO CTA EVIDENCE OF STENOSIS OR ANEURYSM OF THE [place] OF [place].
[2018-11-01 19:50] VITALS: BP 127/76
--- NOTE | 2018-11-01 19:57 | Progress Note ---
Provider Note Provider Note: CARDIOLOGY PROGRESS NOTES by Dr. Myranda Pickard on 11/01/2018. SUBJECTIVE: The patient last night was hypotensive requiring the starting of dopamine at 5 mcg/kg/min. Subsequently the patient went into atrial fibrillation with a ventricular response in the 130s. She was started on Cardizem at 2.5 mg/h, and this brought the rate down. Subsequently this morning he was able to stop the patient's dopamine. And was able to increase the Cardizem drip to 5mg/h infusion, after which the patient converted to sinus mechanism. The patient is more alert awake she has no further dizziness. She did receive vitamin B12 injection yesterday. She denies any PND orthopnea. There is no shortness of breath or chest pain. The patient denies any palpitations. There is no near syncope dizziness or syncope. There is no leg edema. The patient's son called me this morning, and the family had decided that the patient be transferred to a tertiary care center for starting the evaluation for possible TAVR. There is no ventricular arrhythmias seen. There is no TIA or CVA symptoms. Although the patient is low-grade temperature, she denies any cough or sputum production. There is no symptoms of urinary tract infection. PHYSICAL EXAMINATION: The patient is a frail build. She appears to be well- groomed. She is in no acute distress Selected Entries 11/01/18 11:20 Temperature 100.6 F H Temperature Oral Source Pulse Rate 98 Respiratory 20 Rate Blood Pressure 125/82 Blood Pressure 96 Mean BP Location Left Arm BP Position Supine O2 Sat by Pulse 95 Oximetry Oxygen Flow 3.00 Rate Oxygen Delivery Venturi Mask Method HEAD: Is atraumatic normocephalic EYES: Pupils are equal round regular reactive to light accommodation. There is mild conjunctival pallor. There is no scleral icterus. EARS:: External artery canals are clear. Tympanic memories are intact. NOSE: There is no deviated nasal septum. There is no inflammation of the nasal mucous membrane. MOUTH: Mucous membranes of mouth are moist. Tongue is moist. There is no ulcers. There is no bleeding from the gums. THROAT: There is no redness of the oropharynx. There is no exudates. SKIN: There is no skin lesions or skin rashes. There is no petechia or ecchymosis. NECK: Is supple. There is mild JVD present. Carotids are equal there is no bruits but there is bilateral transmitted sounds over the carotids from the aortic area due to aortic stenosis. There is carotid delay present. There is no lymphadenopathy. THERE IS NO GOITER. Lungs: There is lesser area of diminished/absent breath sounds in both bases. Above this there are a few dry crackles in both bases. There is at present no definite rales of CHF. HEART: S1-S2 is heard S1 is of normal intensity. There is no S there is a faint S3 gallop present. There is no S4 gallop. There is systolic murmur of aortic stenosis present 82 is not heard. There is no definite thrill. There is no murmur of aortic regurgitation. There is murmur of tricuspid regurgitation present. There is no mitral regurgitation murmur of any significance. There is no rub. ABDOMEN: Is soft. There is no hepatosplenomegaly. Bowel sounds are well heard. There is no rebound guarding or rigidity. Extremities: Femorals are diminished. There is no femoral bruits. Leg pulses are diminished. There is no pedal edema. There is no DVT or cellulitis. There is no calf tenderness. There is no signs of clubbing ORNAMENT MAKER HAND: The patient is drowsy but with no focal deficits. PSYCHIATRIC: The patient does not appear to be agitated. She is not anxious. 10/31/18 11/01/18 11/01/18 05:22 06:00 06:00 WBC 6.3 Hgb 10.4 L Hct 30.9 L Plt Count 161 Sodium Potassium Chloride Carbon Dioxide Anion Gap BUN Creatinine Est GFR ( Amer) Glucose Calcium Total Bilirubin Direct Bilirubin Neonat Total Bilirubin Neonat Direct Bilirubin Neonat Indirect Bili AST ALT Alkaline Phosphatase NT-Pro-B Natriuret Pep 60303 H Total Protein Albumin Digoxin 1.26 11/01/18 06:00 WBC Hgb Hct Plt Count Sodium 139.1 Potassium 3.6 Chloride 107 Carbon Dioxide 23 Anion Gap 9 BUN 28 H Creatinine 0.94 Est GFR ( Amer) > 60 Glucose 94 Calcium 8.8 Total Bilirubin 0.4 Direct Bilirubin 0.3 Neonat Total Bilirubin Not Reportable Neonat Direct Bilirubin Not Reportable Neonat Indirect Bili Not Reportable AST 240 H ALT 170 H Alkaline Phosphatase 116 NT-Pro-B Natriuret Pep Total Protein 6.3 Albumin 3.2 L Digoxin CHEST X-ray: Shows cardiomegaly. Improved in the appearance of CHF. EKG: Initial EKG shows atrial fibrillation. With the nonspecific ST-T changes. Subsequent EKG shows patient to be in sinus rhythm. Left axis deviation. Ventricular ectopic beats. LVH with repolarization changes. IMPRESSION/recommendation : 1. Elevated troponin I: Most likely secondary to combination of severe cardiomyopathy, aortic stenosis, pneumonia, and multifocal atrial tachycardia. No definite evidence of non-ST elevation KS. But in view of the patient's age one is obligated to further assess for any underlying/significant coronary artery disease. 2. Aortic stenosis: Although the echo shows severe aortic stenosis, in view of the LV dysfunction the patient probably has critical aortic stenosis. Once the pneumonia is cured would recommend that the patient be seen in a tertiary care center for possible percutaneous aortic valve replacement. This has been discussed with the son. The son is discussed with other family members, and the patient, and the family are willing to the patient transferred for evaluation for possible TAVR 3. Hypotension: Most likely secondary to cardiomyopathy and aortic stenosis and the patient's M FAT. Continue dopamine cautiously. 4.cardiomyopathy with severely reduced LV ejection fraction. Would continue the patient on a beta-sammi, and also continue t the patient on small dose of JOSE inhibitor. Need to be cautious about this in view of the patient's aortic stenosis. 5. Severe pulmonary hypertension: Most likely secondary to patient's cardiomyopathy and aortic stenosis, which I believe is long-standing in spite of the patient being asymptomatic. 6. Anemia with B12 deficiency: Start the patient on replacement with B12 injections. We will give the patient thousand micrograms intramuscularly daily for 4 days, and then once a month. Medications reviewed. Medications adjusted. Management plan discussed with the attending physician on the case. The case has been discussed with the the cardiology attending yesterday, and also with the behavioral instructor at [facility] today. The patient has been accepted for transfer. The patient and the patient's family are aware of the benefits and risks of transfer. Note 40 minutes spent on this patient with more than 50% of time spent on direct patient care medical decision making is of high complexity. Will sign off the case. The patient will follow up with me as per the patient and the son's wishes after she is discharged from [facility].
[2018-11-01] MEDS ORDERED: METOPROLOL SUCCINATE 25 MG TAB.SR.24H PO SCH (22:00)
== END 2018-11-01 20:28 | disposition short-term general hospital (02) | DRG 194 ==
LOC: EDBD → ER 05:55 → EH 10:57 → 3W 14:38
PROVIDERS: ADMIT Internal Medicine; ATTEND Internal Medicine
DX: J18.9 Pneumonia, unspecified organism (principal); I42.9 Cardiomyopathy, unspecified; I50.9 Heart failure, unspecified; I35.0 Nonrheumatic aortic (valve) stenosis; R00.8 Other abnormalities of heart beat; D51.3 Other dietary vitamin B12 deficiency anemia; Z79.899 Other long term (current) drug therapy; Z90.710 Acquired absence of both cervix and uterus
CPT/HCPCS: 36415; 70496; 71045; 71046; 71275; 80053; 80061; 80162; 81001; 82550; 82553; 82607; 83036; 83605; 83690; 83735; 83880; 84443; 84484; 85025; 87040; 87070; 87205; 93005; 93010; 93306; 93880; 96361; 96365; 99291; J0456; J0696; J1160; J1265; J1650; J1940; J2060; J2405; J3420; J3490; J7030; J7040; J7060; S0028

== ENCOUNTER → 2018-12-08 | Outpatient (CLI) | payer MEDICARE ==
--- NOTE | 2018-12-08 12:09 | RADIOLOGY REPORT (SQ) ---
EXAM DESCRIPTION: U/S RETROPERITON (RENAL/AORTA) COMPLETED DATE/TIME: 12/08/2018 10:53 am REASON FOR STUDY: ABNORMAL KIDNEY FUNCTION R94.4 ABNORMAL RESULTS OF KIDNEY FUNCTION STUDIES COMPARISON: None. TECHNIQUE: Dynamic and static grayscale images acquired of the kidneys and bladder and recorded on P ACS. Additional selected color Doppler and spectral images recorded. LIMITATIONS: None. FINDINGS: RIGHT KIDNEY: Normal size measuring 8.5 cm. Normal echogenicity. No solid or suspicious ma sses. No hydronephrosis. No calcifications. LEFT KIDNEY: Normal size measuring 8.2 cm. Normal echogenicity. No solid or suspicious masses. No hy dronephrosis. No calcifications. BLADDER: No masses. OTHER FINDINGS: No other significant finding. IMPRESSION: Normal renal ultrasound. No hydronephrosis. TECHNICAL DOCUMENTATION: JOB ID: [id number] [employer]- All Rights Reserved Reading location - IP/workstation name: [email or web address]
== END ==
LOC: RAD 09:38
PROVIDERS: ATTEND Physician Assistant
DX: R94.4 Abnormal results of kidney function studies (principal)
CPT/HCPCS: 76770

== ENCOUNTER → 2019-01-26 | Outpatient (CLI) | payer MEDICARE ==
--- NOTE | 2019-01-26 09:58 | WOMENS IMAGING REPORT ---
EXAM DESCRIPTION: RETROPERITONEAL U/S COMPLETED DATE/TIME: 01/26/2019 9:52 am REASON FOR STUDY: N18.3 CHRONIC KIDNEY DISEASE, STAGE 3 (MODERATE) N18.3 CHRONIC KIDNEY DISEASE, ST AGE 5 (MODERATE) COMPARISON: None. TECHNIQUE: Dynamic and static grayscale images acquired of the kidneys and bladder and recorded on P ACS. Additional selected color Doppler and spectral images recorded. LIMITATIONS: None. FINDINGS: RIGHT KIDNEY: The right kidney measures 9.6 cm in greatest length. Normal echogenicity. No solid or suspicious masses. No hydronephrosis. No calcifications. LEFT KIDNEY: The left kidney measures 10 cm in greatest length. Normal echogenicity. No solid or suspicious masses. No hydronephrosis. No calcifications. BLADDER: No masses. OTHER FINDINGS: No other significant finding. IMPRESSION: NORMAL RENAL AND BLADDER ULTRASOUND. TECHNICAL DOCUMENTATION: JOB ID: [id number] [employer]- All Rights Reserved Reading location - IP/workstation name: [email or web address]
== END ==
LOC: WI 13:21
PROVIDERS: ATTEND Internal Medicine Nephrology
DX: I12.9 Hypertensive chronic kidney disease with stage 1 through stage 4 chronic kidney disease, or unspecified chronic kidney disease (principal); N18.3 Chronic kidney disease, stage 3 (moderate)
CPT/HCPCS: 76770

== ENCOUNTER → 2019-02-16 | Outpatient (CLI) | payer MEDICARE ==
[2019-02-16 10:10] LABS: ABSOLUTE EOSINOPHILS # (AUTO) 0.3 10^3/uL (0.0-0.6); ABSOLUTE LYMPHOCYTES (AUTO) 3.1 10^3/uL (0.5-4.7); ABSOLUTE MONOCYTES (AUTO) 0.8 10^3/uL (0.1-1.4); ABSOLUTE NEUT (AUTO) 2.1 10^3/uL (1.7-8.2); BASOPHILS % (AUTO) 0.3 % (0-2); EOSINOPHILS % (AUTO) 4.1 % (0-6); HEMATOCRIT 31.3 % (36.0-47.0); HEMOGLOBIN 10.7 g/dL (12.0-15.5); LYMPHOCYTES % (AUTO) 49.6 % (13-45); MEAN CORPUSCULAR HEMOGLOBIN 31.6 pg (27.0-33.4); MEAN CORPUSCULAR HGB CONC 34.3 g/dL (32.0-36.0); MEAN CORPUSCULAR VOLUME 92 fl (80-97); MONOCYTES % (AUTO) 13.3 % (3-13); PLATELET COUNT 195 10^3/uL (150-450); RED CELL DISTRIBUTION WIDTH 16.7 % (11.5-14.0); SEGMENTED NEUTROPHILS % (AUTO) 32.7 % (42-78); TOTAL CELLS COUNTED % (AUTO) 100 %; WHITE BLOOD COUNT 6.3 10^3/uL (4.0-10.5)
[2019-02-16 10:26] LABS: APPEARANCE,URINE CLEAR; BILIRUBIN,URINE NEGATIVE (NEGATIVE); COLOR,URINE STRAW; GLUCOSE, URINE NEGATIVE (NEGATIVE); KETONES,URINE NEGATIVE (NEGATIVE); LEUKOCYTE ESTERASE,URINE NEGATIVE (NEGATIVE); NITRITE,URINE NEGATIVE (NEGATIVE); PROTEIN,URINE NEGATIVE (NEGATIVE); URINE SPECIFIC GRAVITY 1.006; UROBILINOGEN,URINE NEGATIVE mg/dL (<2.0)
[2019-02-16 10:39] LABS: ALANINE AMINOTRANSFERASE 28 U/L (9-52); ALKALINE PHOSPHATASE 70 U/L (38-126); ANION GAP 7 (5-19); ASPARTATE AMINO TRANSFERASE 42 U/L (14-36); BILIRUBIN,DIRECT 0.3 mg/dL (0.0-0.4); BILIRUBIN,TOTAL 0.5 mg/dL (0.2-1.3); BLOOD UREA NITROGEN 32 mg/dL (7-20); CARBON DIOXIDE 27 mmol/L (22-30); CHLORIDE 106 mmol/L (98-107); GLUCOSE 92 mg/dL (75-110); POTASSIUM 4.5 mmol/L (3.6-5.0); SODIUM 140.4 mmol/L (137-145); TOTAL PROTEIN 7.7 g/dL (6.3-8.2)
== END ==
LOC: OD 09:06
PROVIDERS: ATTEND Internal Medicine Nephrology
DX: N18.3 Chronic kidney disease, stage 3 (moderate) (principal)
CPT/HCPCS: 36415; 80053; 81001; 85025

== ENCOUNTER → 2019-05-11 | Outpatient (CLI) | payer MEDICARE ==
[2019-05-11 09:11] LABS: HEMATOCRIT 32.7 % (36.0-47.0); MEAN CORPUSCULAR HEMOGLOBIN 31.2 pg (27.0-33.4); MEAN CORPUSCULAR HGB CONC 33.8 g/dL (32.0-36.0); MEAN CORPUSCULAR VOLUME 93 fl (80-97); PLATELET COUNT 203 10^3/uL (150-450); RED BLOOD COUNT 3.54 10^6/uL (3.72-5.28); RED CELL DISTRIBUTION WIDTH 13.5 % (11.5-14.0); WHITE BLOOD COUNT 5.2 10^3/uL (4.0-10.5)
[2019-05-11 09:37] LABS: ANION GAP 9 (5-19); BLOOD UREA NITROGEN 22 mg/dL (7-20); CALCIUM 9.5 mg/dL (8.4-10.2); CARBON DIOXIDE 27 mmol/L (22-30); CHLORIDE 108 mmol/L (98-107); GLUCOSE 83 mg/dL (75-110); IRON(TIBC) 98.4 ug/dL (37-170); PHOSPHORUS 4.1 mg/dL (2.5-4.5); POTASSIUM 4.1 mmol/L (3.6-5.0); SODIUM 143.6 mmol/L (137-145)
[2019-05-12 15:36] LABS: A/G RATIO 1.1 (0.7-1.7); ALBUMIN 2 3.8 g/dL (2.9-4.4); ALPHA-2-GLOBULIN 2 0.8 g/dL (0.4-1.0); GAMMA GLOBULIN 1.5 g/dL (0.4-1.8); GLOBULIN TOTAL 3.6 g/dL (2.2-3.9); MONOCLONAL SPIKE Not Observed g/dL (Not Observ); PROTEIN TOTAL SERUM 7.4 g/dL (6.0-8.5)
== END ==
LOC: OD 08:43
PROVIDERS: ATTEND Internal Medicine Nephrology
DX: I13.0 Hypertensive heart and chronic kidney disease with heart failure and stage 1 through stage 4 chronic kidney disease, or unspecified chronic kidney disease (principal); I50.9 Heart failure, unspecified; N18.3 Chronic kidney disease, stage 3 (moderate); D63.1 Anemia in chronic kidney disease
CPT/HCPCS: 36415; 80048; 82728; 83540; 83550; 83970; 84100; 84165; 85027

== ENCOUNTER → 2020-03-24 | Outpatient (CLI) | payer MEDICARE ==
[2020-03-24 09:18] LABS: ALBUMIN 3.8 g/dL (3.5-5.0); ALKALINE PHOSPHATASE 74 U/L (38-126); ASPARTATE AMINO TRANSFERASE 69 U/L (14-36); BILIRUBIN,TOTAL 0.6 mg/dL (0.2-1.3); TOTAL PROTEIN 7.6 g/dL (6.3-8.2)
[2020-03-25 12:36] LABS: ANTICHROMATIN AB <0.2 AI (0.0-0.9); CENTROMERE B AB <0.2 AI (0.0-0.9); JO-1 ANTIBODY (ANACOMP) <0.2 AI (0.0-0.9)
== END ==
LOC: OD 07:19
PROVIDERS: ATTEND Physician Assistant
DX: R94.5 Abnormal results of liver function studies (principal)
CPT/HCPCS: 36415; 80076; 86225; 86235; 86256

== ENCOUNTER → 2020-03-24 | Outpatient (CLI) | payer MEDICARE ==
--- NOTE | 2020-03-24 09:31 | RADIOLOGY REPORT (SQ) ---
EXAM DESCRIPTION: U/S ABDOMEN LIMITED W/O DOP IMAGES COMPLETED DATE/TIME: 03/24/2020 9:08 am REASON FOR STUDY: (R74.8)ABNORMAL RESULTS OF LIVER FUNCTION STUDIES R94.5 ABNORMAL RESULTS OF LIVER FUNCTION STUDIES R74.8 ABNORMAL LEVELS OF OTHER SERUM ENZYMES COMPARISON: None. TECHNIQUE: Dynamic and static grayscale images acquired of the abdomen and recorded on PACS. Additio nal selected color Doppler and spectral images recorded. LIMITATIONS: None. FINDINGS: PANCREAS: No masses. Visualized pancreatic duct normal caliber. LIVER: No masses. Echotexture normal. LIVER VASCULATURE: Normal directional flow of the main portal vein and hepatic veins. GALLBLADDER: No stones. Normal wall thickness. No pericholecystic fluid. ULTRASOUND-DETECTED LOW'S SIGN: Negative. INTRAHEPATIC DUCTS AND COMMON DUCT: CBD and intrahepatic ducts normal caliber. No filling defects. AORTA: No aneurysm. RIGHT KIDNEY: Normal size. Normal echogenicity. No solid or suspicious masses. No hydronephrosis. No calcifications. PERITONEAL AND RIGHT PLEURAL SPACE: No ascites or effusions. OTHER: No other significant findings. IMPRESSION: NORMAL RIGHT UPPER QUADRANT ULTRASOUND. TECHNICAL DOCUMENTATION: JOB ID: [id number] 2010 [employer]- All Rights Reserved Reading location - IP/workstation name: [email or web address]
== END ==
LOC: RAD 08:30
PROVIDERS: ATTEND Internal Medicine Gastroenterology
DX: R74.8 Abnormal levels of other serum enzymes (principal); R94.5 Abnormal results of liver function studies
CPT/HCPCS: 76705

== ENCOUNTER → 2020-06-22 | Outpatient (CLI) | payer MEDICARE ==
--- NOTE | 2020-06-22 13:29 | ER [facility] ASSESSMENT REPORT ---
Intake - In the Last 14 days Have you traveled outside [place]?: No Have you been in close contact with someone CONFIRMED: Yes Worked in Healthcare?: No - Symptoms Subjective Fever(Crozier feverish): No Chills: No Muscule Aches: No Runny Nose: No Sore Throat: No Cough (New or worsening chronic cough): No Shortness of breath: No Nausea or Vomiting: No Headache: No Abdominal Pain: No Diarrhea(3 or more loose stools in last 24 hours): No - Do you have any of the following Chronic lung disease: Asthma or emphysema or COPD: No Cystic Fibrosis: No Diabetes: No High Blood Pressure: Yes Cardiovascular Disease: No Chronic Kidney Disease: No Chronic Liver Disease: No Chronic blood disorder like Sickle Cell Disease: No Weak immune system due to disease or medication: No Neurologic condition that limits movement: No Developmental delay - Moderate to Severe: No Recent (within past 2 weeks) or current : No - Objective Temperature: 96.4 F Pulse Rate: 67 Respiratory Rate: 14 Blood Pressure: 124/61 O2 Sat by Pulse Oximetry: 97 Objective: Given above, testing performed: If Testing Performed: Test Specimen Type Sent to General - General Information source: Patient Notes: Patient presents to the [facility] for screening for the coronavirus. Patient reports recent exposure to someone who did test positive. Patient denies any present symptoms. Patient does have a history of hypertension. - Related Data Allergies/Adverse Reactions: No Known Allergies Allergy (Verified 09/23/14 09:35) Past Medical History - General Information source: Patient - Social History Smoking Status: Never Smoker Family History: Reviewed & Not Pertinent - Past Medical History Cardiac Medical History: Reports: Hx Hypertension Renal/ Medical History: Denies: Hx Peritoneal Dialysis Past Surgical History: Reports: Hx Section, Hx Hysterectomy Physical Exam - Notes Notes: The patient was evaluated during the global Covid 19 pandemic, and that diagnosis was suspected/considered upon their initial presentation. Their evaluation, treatment and testing was consistent with current guidelines for patients who present with complaints or symptoms that may be related to Covid 19. Full physical exam could not be performed due to covid 19 isolation protocols. Constitutional: Nontoxic appearance, no acute distress Eyes: Nonicteric, extraocular movements intact, sclera clear Cardiovascular: Heart rate and rhythm regular, aortic murmur, no JVD Respiratory: Breath sounds clear bilaterally, nonlabored breathing, no use of accessory muscles, no tachypnea Gastrointestinal: Abdomen not distended Muculoskeletal: Moves all extremities well Skin: Normal color Neuro: Awake alert oriented, normal speech Psych: Normal mood and affect Diagnostic Results Laboratory Results: Patient presents with exposure worrisome for possible Covid 19. Patient does not have emergency worrying symptoms such as difficulty breathing, shortness of breath, chest pain, pressure, confusion or cyanosis. Patient appears suitable for discharge as vital signs are stable and patient is nontoxic in appearance. Good return precautions have been discussed with patient, patient verbalized understanding and is agreeable with discharge plan of care at this time. Patient Education/Counseling Counseling/Education: Patient was provided with discharge information including: As a person under investigation for Covid 19, the [place] department of Health and Human Services, division of public health advises you to adhere to the following guidance until your test results are reported to you. If your test result is positive, you will receive additional information from your provider and your local health department at that time. Remain at home until you are cleared by the health provider or public health authorities. Keep a log of visitors to your home, notify any visitors to your home of your isolation status. If you plan to move to a new address or leave the [facility], notify the local health department in your County. Call your doctor or seek care if you have an urgent medical need. Before seeking medical care, call ahead to get instructions from the provider before arriving at the medical office clinic or hospital. Notify them that you are being tested for the virus that causes Covid 19 so that arrangements can be made, as necessary, to prevent transmission to others in the healthcare setting. Next, notify the local health department in your county. If a medical emergency arises and you need to call 911, inform the first responders that you are being tested for the virus that causes Covid 19. Next, notify the local health department in your county. [facility] Discharge - Discharge Clinical Impression: Encounter for screening laboratory testing for COVID-19 virus in asymptomatic patient Condition: Stable Disposition: Home; Selfcare
[2020-06-22 13:42] VITALS: BP 124/61
== END ==
LOC: RDC 11:58
PROVIDERS: ATTEND Nurse Practitioner Family
DX: Z03.818 Encounter for observation for suspected exposure to other biological agents ruled out (principal)
CPT/HCPCS: U0003; C9803; 87635; 99201; 99211

== ENCOUNTER → 2020-07-05 | Outpatient (CLI) | payer MEDICARE ==
[2020-07-05 16:28] LABS: ABSOLUTE EOSINOPHILS # (AUTO) 0.2 10^3/uL (0.0-0.6); ABSOLUTE LYMPHOCYTES (AUTO) 2.7 10^3/uL (0.5-4.7); ABSOLUTE MONOCYTES (AUTO) 0.9 10^3/uL (0.1-1.4); ABSOLUTE NEUT (AUTO) 3.6 10^3/uL (1.7-8.2); BASOPHILS % (AUTO) 0.1 % (0-2); EOSINOPHILS % (AUTO) 2.6 % (0-6); HEMATOCRIT 34.7 % (36.0-47.0); HEMOGLOBIN 11.6 g/dL (12.0-15.5); LYMPHOCYTES % (AUTO) 36.8 % (13-45); MEAN CORPUSCULAR HEMOGLOBIN 30.5 pg (27.0-33.4); MEAN CORPUSCULAR HGB CONC 33.5 g/dL (32.0-36.0); MEAN CORPUSCULAR VOLUME 91 fl (80-97); MONOCYTES % (AUTO) 11.8 % (3-13); PLATELET COUNT 175 10^3/uL (150-450); RED BLOOD COUNT 3.81 10^6/uL (3.72-5.28); RED CELL DISTRIBUTION WIDTH 14.6 % (11.5-14.0); SEGMENTED NEUTROPHILS % (AUTO) 48.7 % (42-78); TOTAL CELLS COUNTED % (AUTO) 100 %; WHITE BLOOD COUNT 7.3 10^3/uL (4.0-10.5)
[2020-07-05 16:55] LABS: ALBUMIN 3.7 g/dL (3.5-5.0); ALKALINE PHOSPHATASE 71 U/L (38-126); ANION GAP 10 (5-19); ASPARTATE AMINO TRANSFERASE 35 U/L (14-36); BILIRUBIN,DIRECT 0.3 mg/dL (0.0-0.4); BILIRUBIN,TOTAL 0.5 mg/dL (0.2-1.3); BLOOD UREA NITROGEN 23 mg/dL (7-20); CALCIUM 9.6 mg/dL (8.4-10.2); CARBON DIOXIDE 20 mmol/L (22-30); CHLORIDE 108 mmol/L (98-107); GLUCOSE 119 mg/dL (75-110); POTASSIUM 4.6 mmol/L (3.6-5.0); TOTAL PROTEIN 7.3 g/dL (6.3-8.2)
--- NOTE | 2020-07-05 18:47 | RADIOLOGY REPORT (SQ) ---
EXAM DESCRIPTION: CT ABD/PELVIS NO ORAL OR IV IMAGES COMPLETED DATE/TIME: 07/05/2020 4:00 pm REASON FOR STUDY: R10.33 PERIUMBILICAL PAIN R10.33 PERIUMBILICAL PAIN COMPARISON: None. TECHNIQUE: CT scan of the abdomen and pelvis performed without intravenous or oral contrast. Images reviewed with lung, soft tissue, and bone windows. Reconstructed coronal and sagittal MPR images revi ewed. All images stored on PACS. All CT scanners at this facility use dose modulation, iterative reconstruction, and/or weight based d osing when appropriate to reduce radiation dose to as low as reasonably achievable (ALARA). [facility]: Dose Right [facility]: CareDose [facility]: Dose Right [facility]: Teradose 4D [facility]: [employer] RADIATION DOSE: CT Rad equipment meets quality standard of care and radiation dose reduction techniq ues were employed. CTDIvol: 3.6 mGy. DLP: 161 mGy-cm.mGy. LIMITATIONS: None. FINDINGS: LOWER CHEST: No significant findings. No nodules or infiltrates. NON-CONTRASTED LIVER, SPLEEN, ADRENALS: Evaluation limited by lack of IV contrast. No identified sign ificant masses. PANCREAS: No masses. No peripancreatic inflammatory changes. GALLBLADDER: There appears to be a small gallstone or couple small gallstones in the fundus of the ga llbladder. RIGHT KIDNEY AND URETER: No suspicious masses. Assessment limited by lack of IV contrast. No signif icant calcifications. No hydronephrosis or hydroureter. LEFT KIDNEY AND URETER: No suspicious masses. Assessment limited by lack of IV contrast. No signifi cant calcifications. No hydronephrosis or hydroureter. AORTA AND RETROPERITONEUM: No aneurysm. No retroperitoneal adenopathy. 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 BOWEL AND PERITONEAL CAVITY: Sigmoid diverticulosis with no associated inflammation. There is mild t hickening of the wall of the transverse colon. No obvious bowel mass. APPENDIX: Not identified. PELVIS, BLADDER, AND ABDOMINAL WALL:Urinary bladder is not filled. No pelvic mass or fluid collectio n is seen. BONES: No significant findings. OTHER: No other significant finding. IMPRESSION: 1. Possible cholelithiasis. 2. Apparent thickening of the wall of the transverse colon. Correlate for inflammatory bowel diseas e. 3. Atherosclerosis. 4. Sigmoid diverticulosis with no acute inflammation. COMMENT: Quality ID # [id number]: Final reports with documentation of one or more dose reduction techniques (e.g., Automated exposure control, adjustment of the mA and/or kV according to patient size, use of iterative reconstruction technique) TECHNICAL DOCUMENTATION: JOB ID: [id number] 2010 [employer]- All Rights Reserved Reading location - IP/workstation name: [email or web address]
== END ==
LOC: OD 15:18
PROVIDERS: ATTEND Physician Assistant
DX: K57.30 Diverticulosis of large intestine without perforation or abscess without bleeding (principal); I70.90 Unspecified atherosclerosis; R10.33 Periumbilical pain
CPT/HCPCS: 36415; 74176; 80053; 83690; 85025

== ENCOUNTER → 2020-07-17 | Outpatient (CLI) | payer MEDICARE ==
[2020-07-17 11:51] LABS: ABSOLUTE EOSINOPHILS # (AUTO) 0.2 10^3/uL (0.0-0.6); ABSOLUTE LYMPHOCYTES (AUTO) 2.5 10^3/uL (0.5-4.7); ABSOLUTE MONOCYTES (AUTO) 0.7 10^3/uL (0.1-1.4); ABSOLUTE NEUT (AUTO) 2.6 10^3/uL (1.7-8.2); BASOPHILS % (AUTO) 0.7 % (0-2); EOSINOPHILS % (AUTO) 2.9 % (0-6); HEMATOCRIT 32.1 % (36.0-47.0); HEMOGLOBIN 10.9 g/dL (12.0-15.5); LYMPHOCYTES % (AUTO) 41.3 % (13-45); MEAN CORPUSCULAR HEMOGLOBIN 30.2 pg (27.0-33.4); MEAN CORPUSCULAR VOLUME 89 fl (80-97); MONOCYTES % (AUTO) 11.3 % (3-13); PLATELET COUNT 186 10^3/uL (150-450); RED BLOOD COUNT 3.62 10^6/uL (3.72-5.28); RED CELL DISTRIBUTION WIDTH 13.9 % (11.5-14.0); SEGMENTED NEUTROPHILS % (AUTO) 43.8 % (42-78); TOTAL CELLS COUNTED % (AUTO) 100 %
[2020-07-17 12:26] LABS: ANION GAP 8 (5-19); BLOOD UREA NITROGEN 24 mg/dL (7-20); CALCIUM 9.5 mg/dL (8.4-10.2); CARBON DIOXIDE 23 mmol/L (22-30); CHLORIDE 109 mmol/L (98-107); GLUCOSE 98 mg/dL (75-110); POTASSIUM 4.5 mmol/L (3.6-5.0)
== END ==
LOC: OD 10:28
PROVIDERS: ATTEND Internal Medicine Nephrology
DX: I13.0 Hypertensive heart and chronic kidney disease with heart failure and stage 1 through stage 4 chronic kidney disease, or unspecified chronic kidney disease (principal); I50.9 Heart failure, unspecified; N18.3 Chronic kidney disease, stage 3 (moderate); N25.0 Renal osteodystrophy; D64.9 Anemia, unspecified
CPT/HCPCS: 36415; 80048; 85025

== ENCOUNTER → 2020-07-24 | Outpatient (CLI) | payer MEDICARE ==
--- NOTE | 2020-07-24 08:53 | WOMENS IMAGING REPORT ---
EXAM DESCRIPTION: U/S ABDOMEN LIMITED IMAGES COMPLETED DATE/TIME: 07/24/2020 8:36 am REASON FOR STUDY: R74.8 R74.8 ABNORMAL LEVELS OF OTHER SERUM ENZYMES COMPARISON: None. TECHNIQUE: Dynamic and static grayscale images acquired of the abdomen and recorded on PACS. Kalyanio taryn selected color Doppler and spectral images recorded. LIMITATIONS: None. FINDINGS: PANCREAS: No masses. Visualized pancreatic duct normal caliber. LIVER: No masses. Echotexture normal. LIVER VASCULATURE: Normal directional flow of the main portal vein and hepatic veins. GALLBLADDER: Gallstone is noted. No wall thickening or pericholecystic edema. ULTRASOUND-DETECTED LOW'S SIGN: Negative. INTRAHEPATIC DUCTS AND COMMON DUCT: CBD and intrahepatic ducts normal caliber. No filling defects. INFERIOR VENA CAVA: Normal flow. AORTA: No aneurysm. RIGHT KIDNEY: Normal size. Normal echogenicity. No solid or suspicious masses. No hydronephrosis. No calcifications. PERITONEAL AND RIGHT PLEURAL SPACE: No ascites or effusions. OTHER: No other significant findings. IMPRESSION: Single gallstone. No sonographic evidence of acute cholecystitis. No other significant findings. TECHNICAL DOCUMENTATION: JOB ID: [id number] 2010 [employer]- All Rights Reserved Reading location - IP/workstation name: [email or web address]
== END ==
LOC: RAD 08:01
PROVIDERS: ATTEND Physician Assistant
DX: K80.80 Other cholelithiasis without obstruction (principal); R74.8 Abnormal levels of other serum enzymes
CPT/HCPCS: 76705

== ENCOUNTER → 2020-09-19 | Outpatient (CLI) | payer MEDICARE ==
[2020-09-19 13:11] LABS: ABSOLUTE EOSINOPHILS # (AUTO) 0.1 10^3/uL (0.0-0.6); ABSOLUTE LYMPHOCYTES (AUTO) 2.4 10^3/uL (0.5-4.7); ABSOLUTE MONOCYTES (AUTO) 1.1 10^3/uL (0.1-1.4); ABSOLUTE NEUT (AUTO) 2.2 10^3/uL (1.7-8.2); BASOPHILS % (AUTO) 0.2 % (0-2); EOSINOPHILS % (AUTO) 1.6 % (0-6); HEMATOCRIT 30.1 % (36.0-47.0); HEMOGLOBIN 10.2 g/dL (12.0-15.5); LYMPHOCYTES % (AUTO) 41.1 % (13-45); MEAN CORPUSCULAR HEMOGLOBIN 30.3 pg (27.0-33.4); MEAN CORPUSCULAR HGB CONC 33.9 g/dL (32.0-36.0); MEAN CORPUSCULAR VOLUME 89 fl (80-97); MONOCYTES % (AUTO) 18.9 % (3-13); PLATELET COUNT 161 10^3/uL (150-450); RED BLOOD COUNT 3.37 10^6/uL (3.72-5.28); RED CELL DISTRIBUTION WIDTH 15.6 % (11.5-14.0); SEGMENTED NEUTROPHILS % (AUTO) 38.2 % (42-78); TOTAL CELLS COUNTED % (AUTO) 100 %; WHITE BLOOD COUNT 5.8 10^3/uL (4.0-10.5)
[2020-09-19 13:11] LABS: APPEARANCE,URINE CLEAR; BILIRUBIN,URINE NEGATIVE (NEGATIVE); COLOR,URINE YELLOW; GLUCOSE, URINE NEGATIVE (NEGATIVE); KETONES,URINE NEGATIVE (NEGATIVE); LEUKOCYTE ESTERASE,URINE NEGATIVE (NEGATIVE); NITRITE,URINE NEGATIVE (NEGATIVE); PROTEIN,URINE NEGATIVE (NEGATIVE); URINE SPECIFIC GRAVITY 1.021; UROBILINOGEN,URINE NEGATIVE mg/dL (<2.0)
[2020-09-19 13:39] LABS: ANION GAP 10 (5-19); BLOOD UREA NITROGEN 15 mg/dL (7-20); CALCIUM 9.3 mg/dL (8.4-10.2); CARBON DIOXIDE 22 mmol/L (22-30); CHLORIDE 106 mmol/L (98-107); GLUCOSE 88 mg/dL (75-110); POTASSIUM 3.5 mmol/L (3.6-5.0)
== END ==
LOC: OD 12:01
PROVIDERS: ATTEND Internal Medicine Nephrology
DX: I13.0 Hypertensive heart and chronic kidney disease with heart failure and stage 1 through stage 4 chronic kidney disease, or unspecified chronic kidney disease (principal); N18.30 Chronic kidney disease, stage 3 unspecified; I50.9 Heart failure, unspecified; N25.0 Renal osteodystrophy; D64.9 Anemia, unspecified
CPT/HCPCS: 36415; 80048; 81001; 85025